=== PATIENT | male | born 1960 | race Caucasian/White ===

== ENCOUNTER 2023-01-06 07:23 | Inpatient (IN) | payer OTHER ==
[~2023-01-06] VITALS: Ht 180.3 cm; Wt 70.8 kg
--- NOTE | 2023-01-06 07:57 | NUR ---
IV ACCESS 20G RIGHT FOREARM. BLOOD DRAWN AND SENT TO LAB.
--- NOTE | 2023-01-06 07:59 | NUR ---
COVID SWAB COLLECTED AND SENT TO LAB
[2023-01-06] MEDS ORDERED: LORAZEPAM INJ 2 MG/ML VIAL IV ONE (08:00)
[2023-01-06] MEDS ORDERED: IV NS 0.9% 1,000 ML BAG IV ONE (08:00)
[2023-01-06] MEDS ORDERED: LORAZEPAM INJ 2 MG/ML VIAL ONE (08:04)
[2023-01-06 08:10] LABS: BASOPHILS % (AUTO) 0.1 % (0.0-2.0); HEMATOCRIT 44 % (39-51); HEMOGLOBIN 14.1 g/dL (13.5-17.5); LYMPHOCYTES # (AUTO) 0.3 K/uL (0.8-4.8); LYMPHOCYTES % (AUTO) 7.7 % (20.0-44.0); MEAN CORPUSCULAR HGB CONC 32 g/dl (31.0-36.0); MEAN CORPUSCULAR VOLUME 90 fL (80-96); MONOCYTES # (AUTO) 0.3 K/uL (0.1-1.30); MONOCYTES % (AUTO) 8.8 % (2.0-12.0); NEUTROPHILS % (AUTO) 83.4 % (43.0-81.0); PLATELET COUNT (AUTO) 60 K/uL (150-450); RED BLOOD CELL COUNT(AUTO) 4.87 MIL/uL (4.5-6.0); WHITE BLOOD COUNT (AUTO) 3.6 K/uL (4.3-11.0)
[2023-01-06 08:22] LABS: CARBON DIOXIDE 18 mmol/L (21-32); CHLORIDE 95 mmol/L (98-107); CREATININE 0.9 mg/dL (0.6-1.3); GLUCOSE 109 mg/dL (74-106); MAGNESIUM 1.6 mg/dL (1.8-2.4); POTASSIUM 3.9 mmol/L (3.5-5.1); SODIUM SERUM 140 mmol/L (136-145); UREA NITROGEN, BLOOD 17 mg/dL (7-18)
--- NOTE | 2023-01-06 08:27 | NUR ---
XRAY AT BEDSIDE FOR EVAL
[2023-01-06 08:29] LABS: ALANINE AMINOTRANSFERASE 173 U/L (12-78); ALBUMIN 4.1 g/dL (3.4-5.0); ALKALINE PHOSPHATASE 151 U/L (46-116); ASPARTATE AMINOTRANSFERASE 165 U/L (15-37); BILIRUBIN,DIRECT 0.9 mg/dL (0.0-0.2); BILIRUBIN,TOTAL 1.7 mg/dL (0.2-1.0); LIPASE 250 U/L (73-393); TOTAL PROTEIN, SERUM 8.1 g/dL (6.4-8.2)
--- NOTE | 2023-01-06 08:33 | NUR ---
MOVE SHEET SUBMITTED.
--- NOTE | 2023-01-06 09:28 | NUR ---
PANEL ON-CALL PAGED
[2023-01-06] MEDS ORDERED: Magnesium 1GM/D5W 100ML PREMIX PIGGYBACK IV ONE (09:30)
--- NOTE | 2023-01-06 10:41 | NUR ---
NS 1L IV ADMINISTERED AT 08, MAGNESIUM 1 G IV ADMINISTERED AT 09, BOTH FINISHED AT 1041
--- NOTE | 2023-01-06 11:00 | NUR ---
PACKAGING ASSOCIATE NOTE PATIENT WAS TRANSFERRED FROM THE ER , PATIENT IS ALERT ,ORIENTED TIMES 4 ,WAS ADMITTED WITH PRIMARY DIAGNOSIS OF ALCOHOL WITHDRAWAL, CURRENTLY ON IV HYDRATION N/S 100 ML/HR VIA IV ACCESS ON RIGHT WRIST 20 G . PATIENT IS VERY AGITATED , REQUEST PLACED TO THE DR CURTIS FOR ATIVAL IV .PATIENT CAN BE TRANSFERRED TO THE BED SIDE COMMODE WITH ASSISTANCE .CALL LIGHT WITHIN REACH .BED IS AT LOWEST POSITION , BED ALARM IS ON WILL CONTINUE TO MONITOR.
[2023-01-06] MEDS: IV NS 0.9% 1,000 ML IV PRN ×2 (11:45→21:51)
[2023-01-06] MEDS: LORAZEPAM INJ 2 MG/ML VIAL IV PRN ×3 (11:45→19:51)
[2023-01-06 12:00] VITALS: BP 135/85
[2023-01-06 12:51] LABS: BAND % (MANUAL) 4 % (0.0-5.0); NEUTROPHILS % (MANUAL) 80 (42-76)
[2023-01-06 12:52] LABS: BASOPHILS % (MANUAL) 0 % (0.0-2.0); EOSINOPHILS % (MANUAL) 0 % (0-4); LYMPHOCYTES % (MANUAL) 9 % (16-48); MONOCYTES % (MANUAL) 7 % (0-11.0)
[2023-01-06] MEDS: ONDANSETRON HCL/PF 4 MG/2 ML VIAL IV PRN ×2 (14:03→20:05)
[2023-01-06] MEDS ORDERED: ACETAMINOPHEN 325 MG TABLET PO PRN (15:30)
[2023-01-06] MEDS: THIAMINE HCL 100 MG TABLET PO SCH (15:39)
[2023-01-06] MEDS: PANTOPRAZOLE 40 MG VIAL IV SCH (15:39)
[2023-01-06] MEDS: FOLIC ACID 1 MG TABLET PO SCH (15:39)
[2023-01-06 16:00] VITALS: BP 131/86
[2023-01-06] MEDS: CHLORDIAZEPOXIDE HCL 25 MG CAPSULE PO SCH (16:27)
--- NOTE | 2023-01-06 18:52 | NUR ---
RN CLOSING NOTE PATIENT IS ALERT , ORIENTED TIMES 4 . IN BED ASKING FIR ATIVAN EVERY 4 HR NEEDED . IV ACSESS ON R WRIST 20 G , NS RUNNING AT 100ML/HR .ALL MEDICATIONS WERE ADMINISTERED ALL NEEDS WERE MET . BED IS AT LOWEST POSITION , CALL LIGHT WITHIN REACH ,WILL ENDORSE PRESCRIPTIONIST NURSE TO FALLOW POC .
--- NOTE | 2023-01-06 19:30 | NUR ---
SHEETMETAL PATTERNMAKER OPENING NOTES - RECEIVED PATIENT AWAKE. A/O X3, RESTLESS. BREATHING EVEN AND NON-LABORED ON ROOM AIR. C/O ANXIETY AND NAUSEA. ON TELE MONITOR READING SINUS TACHYCARDIA AT 110 BPM. HAS RIGHT FOREARM IV ACCESS #20G WITH NS RUNNING AT 100 ML/HR. NO S/S OF INFILTRATION NOTED. SAFETY PRECAUTIONS IN PLACE: BED LOCKED AND IN LOW POSITION, SIDE RAILS UP X2, CALL LIGHT WITHIN REACH. WILL CONTINUE PLAN OF CARE.
[2023-01-06 20:00] VITALS: BP 125/90
--- NOTE | 2023-01-06 20:09 | NUR ---
PRN ATIVAN 2MG GIVEN FOR ANXIETY AND ZOFRAN FOR NAUSEA. WILL CONTINUE TO MONITOR.
--- NOTE | 2023-01-06 22:30 | NUR ---
PATIENT REPORTED VISUAL HALLUCINATIONS. HE IS SEEING DIFFERENT CREATURES ON THE FLOOR AND IT WON'T MAKE HIM SLEEP. HE DENIES SI/HI. NOTIFIED HOSPITALIST MARIA R. NO NEW ORDERS GIVEN SINCE THIS IS R/T ALCOHOL DELIRIUM. WILL CONTINUE TO MONITOR AND GIVE ATIVAN 2MG Q4H PRN.
[2023-01-07] VITALS: BP 157/82
[2023-01-07] MEDS: LORAZEPAM INJ 2 MG/ML VIAL IV PRN ×5 (00:02→23:03)
--- NOTE | 2023-01-07 00:06 | NUR ---
PRN ATIVAN 2MG ADMINISTERED TO PATIENT. ADVISED TO INFORM ME ANY THOUGHTS OF HURTING HIMSELF OR OTHERS, VERBALIZED UNDERSTANDING.
[2023-01-07] MEDS: ONDANSETRON HCL/PF 4 MG/2 ML VIAL IV PRN (02:51)
[2023-01-07 04:00] VITALS: BP 145/93
--- NOTE | 2023-01-07 07:00 | NUR ---
PROJECT GEOPHYSICIST CLOSING NOTES - PATIENT RESTING IN BED, ABLE TO VERBALIZE NEEDS. BILATERAL HAND TREMORS AND AGITATION NOTED. SATURATING WELL ON ROOM AIR. AFEBRILE. TELE MONITOR SHOWS SINUS RHYTHM AT 99 BPM. RIGHT FOREARM IV ACCESS INTACT, PATENT AND FLUSHING. FREQUENT REORIENTATION NEEDED D/T PATIENT TRYING TO GET OUT OF BED. ALL DUE MEDS GIVEN AND NEEDS ATTENDED. WITHDRAWAL SYMPTOMS AND NAUSEA MANAGED PER MD ORDER. SAFETY MEASURES MAINTAINED. WILL ENDORSE TO AM NURSE FOR TERRI.
[2023-01-07 07:08] LABS: BASOPHILS % (AUTO) 0.2 % (0.0-2.0); EOSINOPHILS % (AUTO) 0.2 % (0.0-6.0); HEMATOCRIT 39 % (39-51); HEMOGLOBIN 12.7 g/dL (13.5-17.5); LYMPHOCYTES # (AUTO) 0.6 K/uL (0.8-4.8); LYMPHOCYTES % (AUTO) 12.5 % (20.0-44.0); MEAN CORPUSCULAR HGB CONC 33 g/dl (31.0-36.0); MEAN CORPUSCULAR VOLUME 90 fL (80-96); MONOCYTES # (AUTO) 0.9 K/uL (0.1-1.30); MONOCYTES % (AUTO) 19.5 % (2.0-12.0); NEUTROPHILS # (AUTO) 3.1 K/uL (1.8-8.9); NEUTROPHILS % (AUTO) 67.6 % (43.0-81.0); PLATELET COUNT (AUTO) 51 K/uL (150-450); RED BLOOD CELL COUNT(AUTO) 4.29 MIL/uL (4.5-6.0); WHITE BLOOD COUNT (AUTO) 4.6 K/uL (4.3-11.0)
[2023-01-07 07:27] LABS: ALBUMIN 3.4 g/dL (3.4-5.0); BILIRUBIN,DIRECT 0.9 mg/dL (0.0-0.2); BILIRUBIN,TOTAL 2.7 mg/dL (0.2-1.0); CALCIUM, SERUM 8.8 mg/dL (8.5-10.1); CREATININE 0.7 mg/dL (0.6-1.3); MAGNESIUM 1.6 mg/dL (1.8-2.4); PHOSPHORUS 1.4 mg/dL (2.5-4.9); POTASSIUM 3.4 mmol/L (3.5-5.1); TOTAL PROTEIN, SERUM 6.9 g/dL (6.4-8.2)
--- NOTE | 2023-01-07 07:38 | NUR ---
TELEPHONE SURVEYOR OPENING NOTE Patient in bed, awake A/O x 2. On room air, no SOB or s/s of distress noted. No IV access at this time, pulled out. On external monitoring showing controlled SR. Safety precautions in place: bed in low, locked position; siderails up x 2; call light within reach. Will continue to monitor.
[2023-01-07 08:00] VITALS: BP 139/96
[2023-01-07] MEDS: IV NS 0.9% 1,000 ML IV PRN ×2 (08:07→18:41)
--- NOTE | 2023-01-07 08:07 | NUR ---
RN NOTE IV re-inserted on Right forearm #22, flushes well.
[2023-01-07] MEDS: FOLIC ACID 1 MG TABLET PO SCH (08:50)
[2023-01-07] MEDS: PANTOPRAZOLE 40 MG VIAL IV SCH (08:50)
[2023-01-07] MEDS: CHLORDIAZEPOXIDE HCL 25 MG CAPSULE PO SCH ×3 (08:50→16:41)
[2023-01-07] MEDS: THIAMINE HCL 100 MG TABLET PO SCH (08:50)
[2023-01-07] MEDS: ENSURE ENLIVE 237 ML LIQUID (VANILLA) PO SCH ×2 (08:51→16:41)
--- NOTE | 2023-01-07 10:06 | NUR ---
RN NOTE Patient is agitated and tremors noted on both hands. Patient keeps trying to get out of bed, not stable on his feet. PRN Ativan 2 mg IV given. Will continue to monitor.
[2023-01-07] MEDS ORDERED: POTASSIUM CHLORIDE 20 MEQ TAB.PRT.SR PO SCH (10:30)
[2023-01-07] MEDS ORDERED: K PHOS NEUTRAL 250 MG TABLET PO ONE (11:00)
[2023-01-07] MEDS ORDERED: MAGNESIUM OXIDE 400 MG TABLET PO ONE (11:00)
[2023-01-07 12:00] VITALS: BP 155/103
--- NOTE | 2023-01-07 14:33 | NUR ---
RN NOTE Patient still very agitated and keeps trying to get out of bed, not stable on his feet. Already on restraints per MD order. PRN Ativan 2 mg IV given. Will continue to monitor.
[2023-01-07] MEDS ORDERED: LORAZEPAM INJ 2 MG/ML VIAL IV ONE (15:00)
--- NOTE | 2023-01-07 15:14 | NUR ---
RN NOTE Patient still very agitated and now combative, still keeps trying to get out of bed, Dr. Pratt ordered one time Ativan 2 mg IV, medication given. Will continue to monitor.
[2023-01-07 16:00] VITALS: BP 120/86
[2023-01-07] MEDS ORDERED: QUETIAPINE FUMARATE 25 MG TABLET PO ONE (16:00)
[2023-01-07] MEDS ORDERED: QUETIAPINE FUMARATE 25 MG TABLET PO SCH (16:00)
--- NOTE | 2023-01-07 16:04 | NUR ---
RN NOTE Patient still very agitated and still combative, still keeps trying to get out of bed, Dr. Pratt ordered one time Seroquel 50 mg PO, medication given. Will continue to monitor.
[2023-01-07 17:30] LABS: BAND % (MANUAL) 1 % (0.0-5.0); LYMPHOCYTES % (MANUAL) 19 % (16-48); MONOCYTES % (MANUAL) 7 % (0-11.0); NEUTROPHILS % (MANUAL) 73 (42-76)
--- NOTE | 2023-01-07 18:56 | NUR ---
ASSOCIATE MUSIC PROFESSOR CLOSING NOTE Patient in bed, resting. A/O x 2, confused. Stable on room air, no SOB or s/s of distress noted. IV access on LFA #22 infusing NS at 100 ml/hr. On external monitoring showing controlled Sinus tachycardia, HR 114. All needs attended to. Due meds given. Bilateral soft wrist restraints in place. Safety precautions in place: bed in low, locked position; siderails up x 2; call light within reach. Will endorse to warehouse worker 2nd shift nurse for TERRI.
--- NOTE | 2023-01-07 19:31 | NUR ---
RN OPENING NOTES: RECEIVED PT IN BED, AWAKE, ALERT/ORIENTED X 1-2 WITH CONFUSION AND VERBALLY RESPONSIVE. ON ROOM AIR AND PT TOLERATED WELL. IV ACCESS ON RFA#22G INTACT AND PATENT. RUNNING NS AT 100CC/HR. NO C/O PAIN OR DISCOMFORT. NO ACUTE DISTRESS. BILATERAL SOFT RESTRAINTS ON. ALL SAFETY MEASURES IN PLACE. BED IN LOWEST POSITION AND LOCKED. BED ALARM ON. SIDE RAILS UP X3, PLACE CALL LIGHT WITHIN REACH. WILL CONTINUE TO MONITOR.
[2023-01-07 20:00] VITALS: BP 96/78
--- NOTE | 2023-01-07 23:07 | NUR ---
RN NOTES: NOTED PT WITH SEVERE AGITATION. KEPT TRYING TO REMOVE THE RESTRAINTS. ATIVAN GIVEN PER PRN ORDERED. WILL CONTINUE TO MONITOR
[2023-01-08] VITALS: BP 120/75
[2023-01-08 04:00] VITALS: BP 118/78
[2023-01-08] MEDS: IV NS 0.9% 1,000 ML IV PRN ×2 (04:29→14:49)
--- NOTE | 2023-01-08 06:29 | NUR ---
RN CLOSING NOTES: PT IN BED, AWAKE, ALERT/ORIENTED X 1-2 WITH VERY CONFUSION AND VERBALLY RESPONSIVE. ON ROOM AIR AND PT TOLERATED WELL. O2 SAT 99%. IV ACCESS ON RFA#22G INTACT AND PATENT. RUNNING NS AT 100CC/HR. NO C/O PAIN OR DISCOMFORT. NO ACUTE DISTRESS. BILATERAL SOFT RESTRAINTS ON.RELEASED Q 2 HOURS TO CHECK CIRCULATION. STILL MONITORING FOR ALCOHOL WITHDRAWAL. NO SIGNIFICANT CHANGES DURING PREVIOUS SHIFT. ALL SAFETY MEASURES IN PLACE. BED IN LOWEST POSITION AND LOCKED. BED ALARM ON. SIDE RAILS UP X3, PLACE CALL LIGHT WITHIN REACH. WILL ENDORSE TO MORNING SHIFT NURSE.
[2023-01-08 06:43] LABS: CALCIUM, SERUM 8.8 mg/dL (8.5-10.1); CREATININE 0.6 mg/dL (0.6-1.3); MAGNESIUM 1.5 mg/dL (1.8-2.4); PHOSPHORUS 1.6 mg/dL (2.5-4.9); POTASSIUM 3.1 mmol/L (3.5-5.1)
--- NOTE | 2023-01-08 07:30 | NUR ---
PIE BOTTOMER AM NOTES: RECEIVED PT IN BED, AWAKE, ALERT/ORIENTED X 1-2, VERY CONFUSED, INCOMPREHENSIBLE WORDS, TALKING TO SELF, ON ROOM AIR, O2 SAT AT 97%, NO SOB, RESPIRATION UNLABORED. ST HR 118, DENIES PAIN/ DISCOMFORT, FRA 22G IV ACCESS WITH NS AT 100 ML/HR INFUSING WELL, SITE CLEAR. BILATERAL SOFT RESTRAINTS IN PLACE, RELEASED AND CHECKED FOR CIRCULATION THEN Q 2 HOURS. PATIENT TRIES TO GET OUT OF BED. ALL SAFETY MEASURES IN PLACE. BED IN LOWEST POSITION AND LOCKED. BED ALARM ON. SIDE RAILS UP X3, PLACE CALL LIGHT WITHIN REACH. WILL CONTINUE TO MONITOR.
[2023-01-08 08:00] VITALS: BP 111/85
[2023-01-08] MEDS: ENSURE ENLIVE 237 ML LIQUID (VANILLA) PO SCH ×2 (08:13→16:41)
[2023-01-08] MEDS: CHLORDIAZEPOXIDE HCL 25 MG CAPSULE PO SCH ×3 (08:48→16:40)
[2023-01-08] MEDS: PANTOPRAZOLE 40 MG TABLET.DR PO SCH (08:48)
[2023-01-08] MEDS: THIAMINE HCL 100 MG TABLET PO SCH (08:48)
[2023-01-08] MEDS: FOLIC ACID 1 MG TABLET PO SCH (08:48)
--- NOTE | 2023-01-08 09:30 | NUR ---
RN NOTES DUE MEDS GIVEN
[2023-01-08] MEDS: LORAZEPAM INJ 2 MG/ML VIAL IV PRN (09:59)
[2023-01-08] MEDS ORDERED: MAGNESIUM OXIDE 400 MG TABLET PO ONE (10:30)
[2023-01-08] MEDS: POTASSIUM CHLORIDE 20 MEQ TAB.PRT.SR PO SCH ×2 (11:17→12:41)
[2023-01-08 12:00] VITALS: BP 121/82
[2023-01-08 16:00] VITALS: BP 132/82
[2023-01-08] MEDS ORDERED: K PHOS NEUTRAL 250 MG TABLET PO ONE (16:30)
--- NOTE | 2023-01-08 18:47 | NUR ---
CHRONIC SPECIALIST CLOSING NOTES: PT IN BED, AWAKE, ALERT/ORIENTED X 1-2, VERY CONFUSED, INCOMPREHENSIBLE WORDS, TALKING TO SELF, ON ROOM AIR, O2 SAT AT >94%, NO SOB, RESPIRATION UNLABORED. ST HR 106, DENIES PAIN/ DISCOMFORT, RFA 22G IV ACCESS WITH NS AT 100 ML/HR INFUSING WELL, SITE CLEAR. BILATERAL SOFT RESTRAINTS IN PLACE, RELEASED AND CHECKED FOR CIRCULATION THEN Q 2 HOURS. PATIENT TRIES TO GET OUT OF BED. ALL SAFETY MEASURES IN PLACE. BED IN LOWEST POSITION AND LOCKED. BED ALARM ON. SIDE RAILS UP X3, PLACE CALL LIGHT WITHIN REACH. ALL NEEDS MET AT THIS TIME. WILL ENDORSE TO NEXT SHIFT FOR TERRI.
--- NOTE | 2023-01-08 19:10 | NUR ---
RN OPENING NOTES: RECEIVED PT IN BED, AWAKE, ALERT/ORIENTED X 1-2 WITH CONFUSION AND VERBALLY RESPONSIVE. ON ROOM AIR AND PT TOLERATED WELL. NSR ON THE MONITOR. IV ACCESS ON RFA#22G INTACT AND PATENT. RUNNING NS AT 100CC/HR. NO C/O PAIN OR DISCOMFORT. NO ACUTE DISTRESS. BILATERAL SOFT RESTRAINTS ON. ALL SAFETY MEASURES IN PLACE. BED IN LOWEST POSITION AND LOCKED. BED ALARM ON. SIDE RAILS UP X3, PLACE CALL LIGHT WITHIN REACH. WILL CONTINUE TO MONITOR.
[2023-01-08 20:00] VITALS: BP 92/62
[2023-01-09] VITALS: BP 144/96
[2023-01-09] MEDS: IV NS 0.9% 1,000 ML IV PRN ×2 (00:49→10:48)
[2023-01-09 04:00] VITALS: BP 138/87
--- NOTE | 2023-01-09 06:38 | NUR ---
RN CLOSING NOTES: PT IN BED, AWAKE, ALERT/ORIENTED X 1-2 WITH CONFUSION AND VERBALLY RESPONSIVE. ON ROOM AIR, NO S/S OF RESPIRATORY DISTRESS, O2 SATURATION 95%. NSR ON THE MONITOR. IV ACCESS ON RFA#22G INTACT AND PATENT. RUNNING NS AT 100 ML/HR. NO C/O PAIN OR DISCOMFORT. NO ACUTE DISTRESS. BILATERAL SOFT RESTRAINTS ON. ALL SAFETY MEASURES IN PLACE. BED IN LOWEST POSITION AND LOCKED. BED ALARM ON. SIDE RAILS UP X3, PLACE CALL LIGHT WITHIN REACH. WILL BE ENDORSED TO THE NEXT SHIFT FOR TERRI.
--- NOTE | 2023-01-09 07:30 | NUR ---
COOK COLD MEAT OPENING NOTES: RECEIVED PT IN BED, AWAKE, ALERT/ORIENTED X 1-2 WITH CONFUSION AND VERBALLY RESPONSIVE. ON ROOM AIR AND PT TOLERATED WELL. ST HR 105 ON TELE MONITOR. IV ACCESS ON RFA#22G INTACT AND PATENT, RUNNING NS AT 100CC/HR. NO C/O PAIN OR DISCOMFORT AT THIS TIME/ NO ACUTE DISTRESS. BILATERAL SOFT RESTRAINTS ON, CHECK FOR SKIN AND CIRCULATION. ALL SAFETY MEASURES IN PLACE. BED IN LOWEST POSITION AND LOCKED. BED ALARM ON. SIDE RAILS UP X3, PLACE CALL LIGHT WITHIN REACH. PLAN OF CARE CONTINUE.
[2023-01-09 08:00] VITALS: BP 145/86
[2023-01-09] MEDS: THIAMINE HCL 100 MG TABLET PO SCH (08:10)
[2023-01-09] MEDS: PANTOPRAZOLE 40 MG TABLET.DR PO SCH (08:10)
[2023-01-09] MEDS: CHLORDIAZEPOXIDE HCL 25 MG CAPSULE PO SCH ×3 (08:10→16:35)
[2023-01-09] MEDS: FOLIC ACID 1 MG TABLET PO SCH (08:10)
[2023-01-09] MEDS: ENSURE ENLIVE 237 ML LIQUID (VANILLA) PO SCH ×2 (08:12→16:25)
[2023-01-09 09:19] LABS: CALCIUM, SERUM 8.8 mg/dL (8.5-10.1); CREATININE 0.6 mg/dL (0.6-1.3); POTASSIUM 3.2 mmol/L (3.5-5.1)
[2023-01-09 09:25] LABS: BILIRUBIN,TOTAL 1.5 mg/dL (0.2-1.0); TOTAL PROTEIN, SERUM 6.3 g/dL (6.4-8.2)
[2023-01-09] MEDS ORDERED: MAGNESIUM OXIDE 400 MG TABLET PO ONE (11:30)
[2023-01-09] MEDS ORDERED: POTASSIUM CHLORIDE 20 MEQ TAB.PRT.SR PO ONE (11:30)
[2023-01-09 12:00] VITALS: BP 131/89
[2023-01-09] MEDS: LEVOFLOXACIN 750 MG /D5W 150ML 750 MG in PREMIX 1 EA IV SCH (13:17)
--- NOTE | 2023-01-09 13:33 | NUR ---
SW Consult: SW consult requested for ETOH abuse. Patient brought to the hospital due to alcohol withdrawal. Patient appeared to be alert and oriented x3 (self,place,situation). Patient was cooperative with this commercial underwriter while conducting the assessment. Patient appeared to present with a flat affect. Patient appeared to be somewhat confused. He did require constant re-direct when assessing the patient. He did stated that he was brought to the hospital due to drinking heavily. He stated that he used to drink beer but changed it to whiskey. He did not tell this commercial underwriter the amount of alcohol he consumes. He did report that he had lost his and began to drink more. Patient reported he has not received any treatment for his addiction. Patient stated that he prefers to continue to drink beer. Patient stated that he does not have any support at this time. He did stated that he lives at home alone located at [address] [place] [address]; ([phone]). SW assessed for suicidal or homicidal ideation and pt denied. Pt denied visual/auditory hallucinations. Bedside nurse stated that pt needs assistance with his ADLs. SW will make an APS report for wellness check at home. DC PLAN: Pt would want to return back home located at [address] [place] [address]; ([phone]) or will recommend SNF. Addendum: 01/09/23 at 1345 by KEVIN KELSEY Substance Abuse resources provided included: [facility] Substance Abuse Self-Helpline ([facility]) ; [facility] [address] [facility] [place]. [place] [id number] ; [facility] [address] [facility] [address] ; [facility] [address] [facility] [place] [address] ; [facility] [address] [facility] [phone] ; [facility] [place] [address] [facility] [id number] ; [facility] [address] [facility] [phone] ; [facility] Substance Abuse Helpline(S[facility] ; [facility] ; [facility] [place]; [facility] [place]; [facility] [place]; [facility] [place]; [facility] [place]; [facility] [place]; [facility] [place]; [facility] [place]; Alcoholics Anonymous -[facility]; [facility] ; Marijuana Anonymous [facility]; Narcotics Anonymous www.na.org;
[2023-01-09] MEDS: LORAZEPAM INJ 2 MG/ML VIAL IV PRN (13:46)
--- NOTE | 2023-01-09 14:30 | NUR ---
SEEN BY NELY GENERAL DENTIST, WITH ORDER FOR PSYCH CONSULT AND ZYPREXA 5MG BID, NOTED AND CARRIED OUT. FAXED FACE SHEET TO [employer], POURED WALL FOREMAN MD IS DR. SCHUSTER
--- NOTE | 2023-01-09 14:59 | NUR ---
APS: KEVIN filed for APS report through [facility] intake # [id number] for wellness check at home.
[2023-01-09 16:00] VITALS: BP 124/89
[2023-01-09] MEDS: OLANZAPINE 5 MG TABLET PO SCH (16:35)
--- NOTE | 2023-01-09 18:32 | NUR ---
BOAT RENTAL CLERK CLOSING NOTES: PT IN BED, AWAKE, ALERT/ORIENTED X 1-2 WITH CONFUSION AND VERBALLY RESPONSIVE. ON ROOM AIR AND PT TOLERATED WELL. ST HR 105 ON TELE MONITOR. IV ACCESS ON LFA#22G INTACT AND PATENT, RUNNING NS AT 100CC/HR. NO C/O PAIN OR DISCOMFORT AT THIS TIME/ NO ACUTE DISTRESS. BILATERAL SOFT RESTRAINTS ON, CHECK FOR SKIN AND CIRCULATION. ALL SAFETY MEASURES IN PLACE. BED IN LOWEST POSITION AND LOCKED. BED ALARM ON. SIDE RAILS UP X3, PLACE CALL LIGHT WITHIN REACH. WILL ENDORSE TO NIGHT NURSE FOR TERRI. .
--- NOTE | 2023-01-09 19:46 | NUR ---
RN OPENING NOTES: PT RECEIVED IN BED, AWAKE, ALERT/ORIENTED X 1-2 WITH CONFUSION AND VERBALLY RESPONSIVE. ON ROOM AIR, NO S/S OF RESPIRATORY DISTRESS. NSR ON THE MONITOR. IV ACCESS ON LFA#22G INTACT AND PATENT. RUNNING NS AT 100 ML/HR. NO C/O PAIN OR DISCOMFORT. NO ACUTE DISTRESS. BILATERAL SOFT RESTRAINTS ON. ALL SAFETY MEASURES IN PLACE. BED IN LOWEST POSITION AND LOCKED. BED ALARM ON. SIDE RAILS UP X3, PLACE CALL LIGHT WITHIN REACH. WILL CONTINUE TO MONITOR.
[2023-01-09 20:00] VITALS: BP 113/84
[2023-01-10] VITALS: BP 132/93
[2023-01-10] MEDS: IV NS 0.9% 1,000 ML IV PRN ×3 (00:46→23:35)
[2023-01-10 04:00] VITALS: BP 147/89
--- NOTE | 2023-01-10 06:45 | NUR ---
RN CLOSING NOTES: PT IN BED, AWAKE, ALERT/ORIENTED X 1-2 WITH CONFUSION AND VERBALLY RESPONSIVE. ON ROOM AIR, NO S/S OF RESPIRATORY DISTRESS. NSR ON THE MONITOR. IV ACCESS ON LFA#22G INTACT AND PATENT. RUNNING NS AT 100 ML/HR. NO C/O PAIN OR DISCOMFORT. NO ACUTE DISTRESS. BILATERAL SOFT RESTRAINTS ON. RELEASED EVERY 2 HOURS TO ASSESS THE CIRCULATION. ALL SAFETY MEASURES IN PLACE. BED IN LOWEST POSITION AND LOCKED. BED ALARM ON. SIDE RAILS UP X3, PLACE CALL LIGHT WITHIN REACH. WILL ENDORSE TO THE NEXT SHIFT.
--- NOTE | 2023-01-10 07:28 | NUR ---
MANAGER FIELD INVESTIGATIONS OPENING NOTES: RECEIVED PT IN BED, AWAKE, ALERT/ORIENTED X 1-2 WITH CONFUSION AND VERBALLY RESPONSIVE. ON ROOM AIR AND PT TOLERATED WELL. ST HR 102. ON TELE MONITOR. IV ACCESS ON LFA#22G INTACT AND PATENT, RUNNING NS AT 100CC/HR. NO C/O PAIN OR DISCOMFORT AT THIS TIME/ NO ACUTE DISTRESS. BILATERAL SOFT RESTRAINTS ON, CHECK FOR SKIN AND CIRCULATION. ALL SAFETY MEASURES IN PLACE. BED IN LOWEST POSITION AND LOCKED. BED ALARM ON. SIDE RAILS UP X3, PLACE CALL LIGHT WITHIN REACH. PLAN OF CARE CONTINUE.
[2023-01-10 08:00] VITALS: BP 145/83
[2023-01-10] MEDS: ENSURE ENLIVE 237 ML LIQUID (VANILLA) PO SCH ×2 (08:00→16:16)
[2023-01-10] MEDS: PANTOPRAZOLE 40 MG TABLET.DR PO SCH (08:05)
[2023-01-10] MEDS: CHLORDIAZEPOXIDE HCL 25 MG CAPSULE PO SCH ×3 (08:05→16:20)
[2023-01-10] MEDS: OLANZAPINE 5 MG TABLET PO SCH ×2 (08:05→16:20)
[2023-01-10] MEDS: FOLIC ACID 1 MG TABLET PO SCH (08:05)
[2023-01-10] MEDS: THIAMINE HCL 100 MG TABLET PO SCH (08:05)
[2023-01-10 08:06] LABS: BASOPHILS % (AUTO) 0.1 % (0.0-2.0); EOSINOPHILS % (AUTO) 1.3 % (0.0-6.0); HEMATOCRIT 44 % (39-51); HEMOGLOBIN 14.1 g/dL (13.5-17.5); LYMPHOCYTES # (AUTO) 0.4 K/uL (0.8-4.8); LYMPHOCYTES % (AUTO) 10.1 % (20.0-44.0); MEAN CORPUSCULAR HGB CONC 32 g/dl (31.0-36.0); MEAN CORPUSCULAR VOLUME 92 fL (80-96); MONOCYTES # (AUTO) 0.8 K/uL (0.1-1.30); MONOCYTES % (AUTO) 18.6 % (2.0-12.0); NEUTROPHILS # (AUTO) 2.9 K/uL (1.8-8.9); NEUTROPHILS % (AUTO) 69.9 % (43.0-81.0); PLATELET COUNT (AUTO) 91 K/uL (150-450); RED BLOOD CELL COUNT(AUTO) 4.82 MIL/uL (4.5-6.0); WHITE BLOOD COUNT (AUTO) 4.2 K/uL (4.3-11.0)
[2023-01-10 08:50] LABS: CALCIUM, SERUM 9.1 mg/dL (8.5-10.1); CREATININE 0.6 mg/dL (0.6-1.3); POTASSIUM 3.7 mmol/L (3.5-5.1)
[2023-01-10 09:11] LABS: MAGNESIUM 1.5 mg/dL (1.8-2.4); PHOSPHORUS 2.7 mg/dL (2.5-4.9)
--- NOTE | 2023-01-10 09:14 | NUR ---
PATIENT WALK WITH PT ABLE TO AMBULATE WITH MINIMAL ASSIST TO THE NURSES STATION.
[2023-01-10] MEDS: LEVOFLOXACIN 750 MG /D5W 150ML 750 MG in PREMIX 1 EA IV SCH (10:30)
[2023-01-10 11:07] LABS: THYROID STIMULATING HORMONE 0.975 uIU/mL (0.358-3.74)
[2023-01-10] MEDS: LORAZEPAM INJ 2 MG/ML VIAL IV PRN ×2 (11:11→18:09)
--- NOTE | 2023-01-10 11:55 | NUR ---
PATIENT IS OUT FOR CT
[2023-01-10 12:00] VITALS: BP 153/89
--- NOTE | 2023-01-10 12:10 | NUR ---
PATIENT IS BACK FROM CT
[2023-01-10] MEDS ORDERED: Magnesium 1GM/D5W 100ML PREMIX 100 ML IV SCH (14:00)
[2023-01-10] MEDS ORDERED: Magnesium 1GM/D5W 100ML PREMIX PIGGYBACK IV ONE (14:00)
[2023-01-10 16:00] VITALS: BP 136/89
[2023-01-10 18:17] LABS: BAND % (MANUAL) 1 % (0.0-5.0); EOSINOPHILS % (MANUAL) 1 % (0-4); LYMPHOCYTES % (MANUAL) 21 % (16-48); MONOCYTES % (MANUAL) 8 % (0-11.0); NEUTROPHILS % (MANUAL) 69 (42-76)
[2023-01-10 20:00] VITALS: BP 136/89
[2023-01-11] VITALS: BP 145/81
[2023-01-11 05:22] VITALS: BP 143/84
--- NOTE | 2023-01-11 06:33 | NUR ---
RN NOTES: PT IN BED, AWAKE, ALERT/ORIENTED X 1-2 WITH CONFUSION AND VERBALLY RESPONSIVE. ON ROOM AIR, NO S/S OF RESPIRATORY DISTRESS. IV ACCESS ON LFA#22G INTACT AND PATENT. RUNNING NS AT 100 ML/HR. NO C/O PAIN OR DISCOMFORT. NO ACUTE DISTRESS. BILATERAL SOFT RESTRAINTS ON. RELEASED EVERY 2 HOURS TO ASSESS THE CIRCULATION. ALL SAFETY MEASURES IN PLACE. BED IN LOWEST POSITION AND LOCKED. BED ALARM ON. SIDE RAILS UP X3, PLACE CALL LIGHT WITHIN REACH. WILL ENDORSE TO THE NEXT SHIFT.
[2023-01-11 07:06] LABS: BASOPHILS % (AUTO) 0.1 % (0.0-2.0); EOSINOPHILS % (AUTO) 1.2 % (0.0-6.0); HEMATOCRIT 42 % (39-51); HEMOGLOBIN 13.4 g/dL (13.5-17.5); LYMPHOCYTES # (AUTO) 0.6 K/uL (0.8-4.8); MEAN CORPUSCULAR HGB CONC 32 g/dl (31.0-36.0); MEAN CORPUSCULAR VOLUME 93 fL (80-96); MONOCYTES # (AUTO) 1.1 K/uL (0.1-1.30); MONOCYTES % (AUTO) 30.8 % (2.0-12.0); NEUTROPHILS % (AUTO) 52.9 % (43.0-81.0); PLATELET COUNT (AUTO) 111 K/uL (150-450); RED BLOOD CELL COUNT(AUTO) 4.53 MIL/uL (4.5-6.0); WHITE BLOOD COUNT (AUTO) 3.7 K/uL (4.3-11.0)
--- NOTE | 2023-01-11 07:25 | NUR ---
RN OPENING NOTE RECEIVED PATIENT IN BED, AWAKE, A/O X2, VERBALLY RESPONSIVE, WITH CONFUSION. REALITY ORIENTATION PROVIDED. ON ROOM AIR, NO SOB NOTED, BREATHING EVEN AND UNLABORED. DENIES ANY PAIN AT THIS TIME. BILATERAL SOFT WRIST RESTRAINTS IN PLACE. FOR SAFETY. NOTED WITH IV ACCESS ON LEFT FOREARM #22G, INTACT AND PATENT WITH NS @ 10ML/HR INFUSING WELL. SAFETY MEASURE IN PLACE. BED IN LOW AND LOCKED POSITION, BED ALARM ON, SIDE RAILS UP X3, CALL LIGHT PLACED WITHIN EASY REACH. WILL CONTINUE TO MONITOR PATIENT.
[2023-01-11 07:30] LABS: CREATININE 0.7 mg/dL (0.6-1.3); MAGNESIUM 1.7 mg/dL (1.8-2.4); PHOSPHORUS 3.1 mg/dL (2.5-4.9)
[2023-01-11 08:00] VITALS: BP 123/99
[2023-01-11 08:07] LABS: ALBUMIN 3.1 g/dL (3.4-5.0); TOTAL PROTEIN, SERUM 6.9 g/dL (6.4-8.2)
[2023-01-11] MEDS: ENSURE ENLIVE 237 ML LIQUID (VANILLA) PO SCH ×2 (08:25→17:16)
[2023-01-11] MEDS: THIAMINE HCL 100 MG TABLET PO SCH (08:25)
[2023-01-11] MEDS: PANTOPRAZOLE 40 MG TABLET.DR PO SCH (08:25)
[2023-01-11] MEDS: FOLIC ACID 1 MG TABLET PO SCH (08:25)
[2023-01-11] MEDS: OLANZAPINE 5 MG TABLET PO SCH (08:25)
[2023-01-11] MEDS: CHLORDIAZEPOXIDE HCL 25 MG CAPSULE PO SCH ×3 (08:25→16:24)
--- NOTE | 2023-01-11 08:40 | NUR ---
RN NOTE SEEN AND EXAMINED BY NELY COON NP, WITH ORDERS RECEIVED, CARRIED OUT.
[2023-01-11] MEDS: LEVOFLOXACIN (250MG) 250 MG TABLET PO SCH (09:02)
[2023-01-11] MEDS ORDERED: MAGNESIUM OXIDE 400 MG TABLET PO ONE (10:30)
[2023-01-11 12:00] VITALS: BP 159/92
[2023-01-11] MEDS: HALOPERIDOL 5 MG TABLET PO SCH ×2 (12:23→16:25)
[2023-01-11 14:22] LABS: EOSINOPHILS % (MANUAL) 1 % (0-4); LYMPHOCYTES % (MANUAL) 18 % (16-48); MONOCYTES % (MANUAL) 25 % (0-11.0); NEUTROPHILS % (MANUAL) 56 (42-76)
[2023-01-11 16:00] VITALS: BP 137/90
--- NOTE | 2023-01-11 18:45 | NUR ---
RN CLOSING NOTE PATIENT IN BED, AWAKE, A/O X2, VERBALLY RESPONSIVE, WITH CONFUSION. REALITY ORIENTATION PROVIDED. STABLE ON ROOM AIR, NO SOB NOTED, BREATHING EVEN AND UNLABORED. DENIED ANY PAIN. WITH IV ACCESS ON LEFT FOREARM #22G, INTACT AND PATENT, SALINE LOCKED. CONTINUE ON CARDIAC MONITORING SHOWING SR/ST, HR @90-101. ALL DUE MEDS GIVEN, TOLERATED WELL. SAFETY MEASURE MAINTAINED. BED IN LOW AND LOCKED POSITION, BED ALARM ON, SIDE RAILS UP X3, CALL LIGHT PLACED WITHIN EASY REACH. WILL ENDORSE TO NEXT SHIFT FOR CONTINUITY OF CARE.
[2023-01-11 20:00] VITALS: BP 143/88
[2023-01-11] MEDS: LORAZEPAM INJ 2 MG/ML VIAL IV PRN (21:48)
[2023-01-12] VITALS: BP 127/87
--- NOTE | 2023-01-12 01:00 | NUR ---
RN NOTES PATIENT IS CONFUSED TRYING TO GET OUT OF BED. FREQUENT VISUAL MONITORING RENDERED.
[2023-01-12 04:00] VITALS: BP 120/89
[2023-01-12] MEDS: IV NS 0.9% 1,000 ML IV PRN (05:49)
--- NOTE | 2023-01-12 06:17 | NUR ---
RN NOTES: PT IN BED, AWAKE, ALERT/ORIENTED X 1-2 WITH CONFUSION AND VERBALLY RESPONSIVE. ON ROOM AIR, NO S/S OF RESPIRATORY DISTRESS. IV ACCESS ON LFA#22G INTACT AND PATENT. RUNNING NS AT 100 ML/HR. NO C/O PAIN OR DISCOMFORT. NO ACUTE DISTRESS. PATIENT IS CONFUSED ALL NIGHT TRYING TO GET OUT OF BED. ALL SAFETY MEASURES IN PLACE. BED IN LOWEST POSITION AND LOCKED. BED ALARM ON. SIDE RAILS UP X3, PLACE CALL LIGHT WITHIN REACH. WILL ENDORSE TO THE NEXT SHIFT.
[2023-01-12 08:00] VITALS: BP 117/81
[2023-01-12] MEDS: ENSURE ENLIVE 237 ML LIQUID (VANILLA) PO SCH ×2 (08:09→17:10)
[2023-01-12] MEDS: LEVOFLOXACIN (250MG) 250 MG TABLET PO SCH (08:13)
[2023-01-12] MEDS: CHLORDIAZEPOXIDE HCL 25 MG CAPSULE PO SCH ×3 (08:13→17:10)
[2023-01-12] MEDS: THIAMINE HCL 100 MG TABLET PO SCH (08:14)
[2023-01-12] MEDS: FOLIC ACID 1 MG TABLET PO SCH (08:14)
[2023-01-12] MEDS: HALOPERIDOL 5 MG TABLET PO SCH ×3 (08:14→17:10)
[2023-01-12] MEDS: PANTOPRAZOLE 40 MG TABLET.DR PO SCH (08:16)
[2023-01-12] MEDS: LORAZEPAM INJ 2 MG/ML VIAL IV PRN ×2 (11:29→17:37)
[2023-01-12 12:00] VITALS: BP 125/81
[2023-01-12 16:00] VITALS: BP 137/80
--- NOTE | 2023-01-12 18:45 | NUR ---
RN CLOSING NOTE PATIENT IN BED, AWAKE, A/O X2, VERBALLY RESPONSIVE, WITH CONFUSION. REALITY ORIENTATION PROVIDED. STABLE ON ROOM AIR, NO SOB NOTED, BREATHING EVEN AND UNLABORED. DENIED ANY PAIN. WITH IV ACCESS ON LEFT FOREARM #22G, INTACT AND PATENT, SALINE LOCKED. CONTINUE ON CARDIAC MONITORING SHOWING SR/ST, HR @90-106. ALL DUE MEDS GIVEN, TOLERATED WELL. SAFETY MEASURE MAINTAINED. BED IN LOW AND LOCKED POSITION, BED ALARM ON, SIDE RAILS UP X3, CALL LIGHT PLACED WITHIN EASY REACH. WILL ENDORSE TO NEXT SHIFT FOR CONTINUITY OF CARE.
--- NOTE | 2023-01-12 19:30 | NUR ---
RN NOTES: PT RECEIVED IN BED, AWAKE, ALERT/ORIENTED X 1-2 WITH CONFUSION AND VERBALLY RESPONSIVE. ON ROOM AIR, NO S/S OF RESPIRATORY DISTRESS. NSR ON THE MONITOR. IV ACCESS ON RFA#22G INTACT AND PATENT. RUNNING NS AT 100 ML/HR. NO C/O PAIN OR DISCOMFORT. NO ACUTE DISTRESS. BILATERAL SOFT RESTRAINTS ON. ALL SAFETY MEASURES IN PLACE. BED IN LOWEST POSITION AND LOCKED. BED ALARM ON. SIDE RAILS UP X3, PLACE CALL LIGHT WITHIN REACH. WILL CONTINUE TO MONITOR.
[2023-01-12 20:00] VITALS: BP 143/97
[2023-01-13] VITALS: BP 108/68
[2023-01-13 04:00] VITALS: BP 124/68
--- NOTE | 2023-01-13 07:10 | NUR ---
RN OPENING NOTE PT IN BED, AWAKE, ALERT/ORIENTED X 1-2 WITH CONFUSION AND VERBALLY RESPONSIVE. ON ROOM AIR, NO S/S OF RESPIRATORY DISTRESS. NSR ON THE MONITOR. IV ACCESS ON LFA#22G INTACT AND PATENT. RUNNING NS AT 100 ML/HR. NO C/O PAIN OR DISCOMFORT. NO ACUTE DISTRESS. BILATERAL SOFT RESTRAINTS ON. ALL SAFETY MEASURES IN PLACE. BED IN LOWEST POSITION AND LOCKED. BED ALARM ON. SIDE RAILS UP X3, PLACE CALL LIGHT WITHIN REACH. WILL CONTINUE TO MONITOR.
[2023-01-13] MEDS: ENSURE ENLIVE 237 ML LIQUID (VANILLA) PO SCH ×2 (07:40→16:57)
[2023-01-13 08:00] VITALS: BP 134/80
[2023-01-13] MEDS: HALOPERIDOL 5 MG TABLET PO SCH ×3 (08:35→17:01)
[2023-01-13] MEDS: LEVOFLOXACIN (250MG) 250 MG TABLET PO SCH (08:36)
[2023-01-13] MEDS: CHLORDIAZEPOXIDE HCL 25 MG CAPSULE PO SCH ×3 (08:36→17:01)
[2023-01-13] MEDS: PANTOPRAZOLE 40 MG TABLET.DR PO SCH (08:36)
[2023-01-13] MEDS: THIAMINE HCL 100 MG TABLET PO SCH (08:36)
[2023-01-13] MEDS: FOLIC ACID 1 MG TABLET PO SCH (08:36)
[2023-01-13 12:00] VITALS: BP 139/86
[2023-01-13] MEDS: IV NS 0.9% 1,000 ML IV PRN (14:53)
[2023-01-13 16:00] VITALS: BP 147/97
--- NOTE | 2023-01-13 19:22 | NUR ---
RN CLOSING NOTE PT IN BED, AWAKE, CONFUSED VERBALLY RESPONSIVE. ON ROOM AIR, NO S/S OF RESPIRATORY DISTRESS. NSR ON THE MONITOR. IV ACCESS ON LFA#22G INTACT AND PATENT. RUNNING NS AT 100 ML/HR. NO C/O PAIN OR DISCOMFORT. NO ACUTE DISTRESS. BILATERAL SOFT RESTRAINTS ON. ALL SAFETY MEASURES IN PLACE. BED IN LOWEST POSITION AND LOCKED. BED ALARM ON. SIDE RAILS UP X3, PLACE CALL LIGHT WITHIN REACH. WILL ENDORSE TO THE UPCOMING SHIFT FOR TERRI.
--- NOTE | 2023-01-13 19:30 | NUR ---
neon sign maker Opening Note Received pt in bed, awake, a/o x 1-2, able to communicate but with periods of confusion. Currently on RA, tolerating well with no s/sx of acute respi distress noted at this time. No SOB, breathing is even and unlabored. Tele monitor reads ST with HR in 100s. IV access on LFA, #22g running NS @ 100 cc/hr, patent and intact, flushes well. Bilateral soft wrist restraints in place. No skin and circulatory issues at this time. All safety measures in place: bed locked in low position, bed alarm on, sr up x 3, call light and table within reach. will continue to monitor.
[2023-01-13 20:00] VITALS: BP 153/105
[2023-01-14] VITALS: BP 147/102
[2023-01-14] MEDS: IV NS 0.9% 1,000 ML IV PRN ×2 (01:31→11:15)
[2023-01-14 04:00] VITALS: BP 141/90
[2023-01-14 06:36] LABS: BASOPHILS % (AUTO) 0.1 % (0.0-2.0); EOSINOPHILS % (AUTO) 0.9 % (0.0-6.0); HEMATOCRIT 42 % (39-51); HEMOGLOBIN 13.8 g/dL (13.5-17.5); LYMPHOCYTES # (AUTO) 0.6 K/uL (0.8-4.8); LYMPHOCYTES % (AUTO) 13.5 % (20.0-44.0); MEAN CORPUSCULAR HGB CONC 33 g/dl (31.0-36.0); MEAN CORPUSCULAR VOLUME 90 fL (80-96); MONOCYTES # (AUTO) 1.2 K/uL (0.1-1.30); MONOCYTES % (AUTO) 27.8 % (2.0-12.0); NEUTROPHILS # (AUTO) 2.6 K/uL (1.8-8.9); NEUTROPHILS % (AUTO) 57.7 % (43.0-81.0); PLATELET COUNT (AUTO) 233 K/uL (150-450); RED BLOOD CELL COUNT(AUTO) 4.71 MIL/uL (4.5-6.0); WHITE BLOOD COUNT (AUTO) 4.5 K/uL (4.3-11.0)
--- NOTE | 2023-01-14 06:46 | NUR ---
[facility] CLOSING NOTE NO SIGNIFICANT CHANGE T/O THE NIGHT. PT REMAINED CONFUSED. RESTRAINTS STILL IN PLACE. ALL NEEDS MET. PM CARE DONE. TURNED AND REPOSITIONED. WILL ENDORSE TO AM SHIFT NURSE FOR TERRI.
[2023-01-14 06:47] LABS: CALCIUM, SERUM 9.3 mg/dL (8.5-10.1); CREATININE 0.8 mg/dL (0.6-1.3); POTASSIUM 3.7 mmol/L (3.5-5.1)
[2023-01-14] MEDS: ENSURE ENLIVE 237 ML LIQUID (VANILLA) PO SCH ×2 (07:46→16:54)
[2023-01-14 08:00] VITALS: BP 145/90
[2023-01-14] MEDS: THIAMINE HCL 100 MG TABLET PO SCH (08:05)
[2023-01-14] MEDS: FOLIC ACID 1 MG TABLET PO SCH (08:05)
[2023-01-14] MEDS: CHLORDIAZEPOXIDE HCL 25 MG CAPSULE PO SCH ×3 (08:05→16:50)
[2023-01-14] MEDS: PANTOPRAZOLE 40 MG TABLET.DR PO SCH (08:06)
[2023-01-14] MEDS: LEVOFLOXACIN (250MG) 250 MG TABLET PO SCH (08:06)
[2023-01-14] MEDS: HALOPERIDOL 5 MG TABLET PO SCH ×3 (08:06→16:50)
[2023-01-14] MEDS: LORAZEPAM INJ 2 MG/ML VIAL IV PRN (10:54)
[2023-01-14 12:00] VITALS: BP 137/71
[2023-01-14 16:00] VITALS: BP 120/71
--- NOTE | 2023-01-14 18:45 | NUR ---
RN CLOSING NOTE PT IN BED, AWAKE, CONFUSED VERBALLY RESPONSIVE. ON ROOM AIR, NO S/S OF RESPIRATORY DISTRESS. SR ON THE MONITOR. IV ACCESS ON LFA#22G INTACT AND PATENT. RUNNING NS AT 100 ML/HR. NO C/O PAIN OR DISCOMFORT. NO ACUTE DISTRESS. BILATERAL SOFT RESTRAINTS ON. ALL SAFETY MEASURES IN PLACE. BED IN LOWEST POSITION AND LOCKED. BED ALARM ON. SIDE RAILS UP X3, PLACE CALL LIGHT WITHIN REACH. WILL ENDORSE TO THE ACCOUNTS PAYABLE ASSOCIATE FOR TERRI.
[2023-01-14 20:00] VITALS: BP 155/94
[2023-01-15] VITALS: BP 126/88
[2023-01-15 00:18] LABS: BAND % (MANUAL) 4 % (0.0-5.0); BASOPHILS % (MANUAL) 0 % (0.0-2.0); EOSINOPHILS % (MANUAL) 0 % (0-4); LYMPHOCYTES % (MANUAL) 14 % (16-48); MONOCYTES % (MANUAL) 25 % (0-11.0); NEUTROPHILS % (MANUAL) 57 (42-76)
[2023-01-15 04:00] VITALS: BP 128/93
--- NOTE | 2023-01-15 06:38 | NUR ---
END OF SHIFT, PATIENT ASLEEP AT THIS TIME, AT ROOM AIR WITH O2 SAT LEVEL WNL, NSR IN TELE MONITOR, IV SITE PATIENT AND INTACT, IVF INFUSING ORDERED, BILATERAL SOFT WRIST RESTRAINS IN PLACED, NO ABNORMALITY NOTED IN SKIN, NO CIRCULATION COMPROMISED, SIDE RAILS OF BED PADDED FOR SEIZURE PRECAUTIONS, BED LOCKED AND IN LOWEST POSITION, S/R IP X2, INDEPENDENT WITH REPOSITION, WILL ENDORSE CONTINUITY OF CARE TO ONCOMING NURSE.
[2023-01-15] MEDS: IV NS 0.9% 1,000 ML IV PRN ×2 (06:45→16:26)
--- NOTE | 2023-01-15 07:14 | NUR ---
PRODUCTION DIRECTOR OPENING NOTES Received pt asleep in bed. No signs of pain or discomfort at this time. Pt is currently on RA and tolerating it well. IV access on LFA 20G patent and intact running IVF NS at 100cc/hr. HOB elevated to pts comfort. Siderails up at all times. Call light within reach. Will continue to monitor.
[2023-01-15 08:00] VITALS: BP 144/97
[2023-01-15] MEDS: ENSURE ENLIVE 237 ML LIQUID (VANILLA) PO SCH ×2 (08:00→17:31)
[2023-01-15] MEDS: PANTOPRAZOLE 40 MG TABLET.DR PO SCH (10:13)
[2023-01-15] MEDS: HALOPERIDOL 1 MG TABLET PO SCH ×3 (10:13→17:13)
[2023-01-15] MEDS: CHLORDIAZEPOXIDE HCL 25 MG CAPSULE PO SCH ×3 (10:13→17:13)
[2023-01-15] MEDS: FOLIC ACID 1 MG TABLET PO SCH (10:14)
[2023-01-15] MEDS: THIAMINE HCL 100 MG TABLET PO SCH (10:14)
[2023-01-15 16:00] VITALS: BP 118/94
--- NOTE | 2023-01-15 18:41 | NUR ---
INDEPENDENT LIVING ADVISOR CLOSING NOTES All due meds and tx gien as ordered. Pt tolerated everything well. All needs attended to. Call light within reach. Will endorse to oncoming nurse.
--- NOTE | 2023-01-15 20:06 | NUR ---
noc rn opening note received patient in bed a/ox2, no s/s of apparent distress in room air. denies any pain. left forearm running NS @100mls/hr. bila. soft wrist restraints in place. safety in place-- bed in lowest, locked position, bed rails upX4 and padded will continue with the plan for patient and continue to monitor for withdrawal.
[2023-01-16] MEDS: IV NS 0.9% 1,000 ML IV PRN ×3 (02:56→23:19)
[2023-01-16 05:00] VITALS: BP 143/93
--- NOTE | 2023-01-16 06:48 | NUR ---
noc rn closing note Patient in bed with eyes closed, easy to arouse. no s/s of apparent distress in room air. denies any pain at this time. IV NS running @ 100mls/hr. all needs attended. all scheduled medications administered. safety in place-- bed in lowest, locked position, call light within reach, bed rails up X4, padded. will endorse to morning shift rn for continuity of care.
--- NOTE | 2023-01-16 07:10 | NUR ---
RN OPENING NOTE PT IN BED, AWAKE, ALERT/ORIENTED X 1-2 WITH CONFUSION AND VERBALLY RESPONSIVE. ON ROOM AIR, NO S/S OF RESPIRATORY DISTRESS. SR ON THE MONITOR. IV ACCESS ON LFA#22G INTACT AND PATENT. RUNNING NS AT 100 ML/HR. NO C/O PAIN OR DISCOMFORT. NO ACUTE DISTRESS. ALL SAFETY MEASURES IN PLACE. BED IN LOWEST POSITION AND LOCKED. BED ALARM ON. SIDE RAILS UP X3, PLACE CALL LIGHT WITHIN REACH. WILL CONTINUE TO MONITOR.
[2023-01-16] MEDS: PANTOPRAZOLE 40 MG TABLET.DR PO SCH (08:04)
[2023-01-16] MEDS: HALOPERIDOL 1 MG TABLET PO SCH (08:05)
[2023-01-16] MEDS: THIAMINE HCL 100 MG TABLET PO SCH (08:05)
[2023-01-16] MEDS: FOLIC ACID 1 MG TABLET PO SCH (08:05)
[2023-01-16] MEDS: CHLORDIAZEPOXIDE HCL 25 MG CAPSULE PO SCH ×3 (08:05→16:45)
[2023-01-16] MEDS: ENSURE ENLIVE 237 ML LIQUID (VANILLA) PO SCH ×2 (08:06→16:54)
[2023-01-16] MEDS: LORAZEPAM INJ 2 MG/ML VIAL IV PRN (10:36)
[2023-01-16] MEDS ORDERED: TEMAZEPAM 7.5 MG CAPSULE PO PRN (12:30)
[2023-01-16] MEDS: HALOPERIDOL 5 MG TABLET PO SCH ×2 (13:42→16:45)
[2023-01-16] MEDS: GABAPENTIN 100 MG CAPSULE PO SCH ×2 (13:42→16:45)
[2023-01-16 16:00] VITALS: BP 134/78
--- NOTE | 2023-01-16 18:43 | NUR ---
RN CLOSING NOTE PT IN BED, AWAKE, CONFUSED VERBALLY RESPONSIVE. ON ROOM AIR, NO S/S OF RESPIRATORY DISTRESS. SR ON THE MONITOR. IV ACCESS ON LFA#22G INTACT AND PATENT. RUNNING NS AT 100 ML/HR. NO C/O PAIN OR DISCOMFORT. NO ACUTE DISTRESS. BILATERAL SOFT RESTRAINTS ON. ALL SAFETY MEASURES IN PLACE. BED IN LOWEST POSITION AND LOCKED. BED ALARM ON. SIDE RAILS UP X3, PLACE CALL LIGHT WITHIN REACH. WILL ENDORSE TO THE MEN'S GARMENT FITTER FOR TERRI.
--- NOTE | 2023-01-16 19:30 | NUR ---
MS RN OPENING NOTE RECEIVED PATIENT IN BED, AWAKE, CONFUSED. AFEBRILE AND NOT IN ANY FORM OF ACUTE DISTRESS. BREATHING EVEN AND NON LABORED. NO C/O PAIN OR DISCOMFORT AT THIS TIME. WITH IV ACCESS ON RAC 18G RUNNING WITH NS AT 100ML/HR. ON BILATERAL SOFT WRIST RESTRAINTS, NOTED WITH SKIN INTACT AND GOOD CIRCULATION. SAFETY MEASURES IN PLACE. KEPT BED IN LOCKED AND IN LOW POSITION. SIDE RAILS UP X2. ADVISED TO USE THE CALL LIGHT WHEN IN NEED OF ASSISTANCE.
[2023-01-16 20:00] VITALS: BP 136/89
[2023-01-16 20:06] LABS: VITAMIN B1 THIAMINE,WB 135.7 nmol/L (66.5-200.0)
[2023-01-17 04:00] VITALS: BP 136/86
--- NOTE | 2023-01-17 06:22 | NUR ---
MS RN CLOSING NOTE PATIENT IN BED, SLEEPING INTERMITTENTLY. AFEBRILE AND NOT IN ANY FORM OF ACUTE DISTRESS. BREATHING EVEN AND NON LABORED. NO C/O PAIN OR DISCOMFORT THROUGHOUT THE SHIFT. WITH IV ACCESS ON RAC 18G RUNNING WITH NS AT 100ML/HR. MEDICATED ORDERED. SEIZURE PRECAUTION OBSERVED. SAFETY MEASURES IN PLACE. KEPT BED IN LOCKED AND IN LOW POSITION. SIDE RAILS UP X2. ADVISED TO USE THE CALL LIGHT WHEN IN NEED OF ASSISTANCE. ALL NURSING NEEDS ATTENDED. ENDORSED TO INCOMING SHIFT FOR CONTINUITY OF CARE.
--- NOTE | 2023-01-17 07:00 | NUR ---
MS RN OPENING NOTE PATIENT IN BED, SLEEPING INTERMITTENTLY. AFEBRILE AND NOT IN ANY FORM OF ACUTE DISTRESS. ON ROOM AIR BREATHING EVEN AND NON LABORED WITH NO PAIN OR DISCOMFORT NOTED. IV ACCESS ON RAC 18G RUNNING WITH NS AT 100ML/HR. MEDICATED ORDERED. SAFETY MEASURES IN PLACE. BED IN LOWEST AND LOCKED POSITION. SIDE RAILS UP X2. CALL LIGHT AND TABLE WITHIN REACH. WILL CONTINUE TO MONITOR.
[2023-01-17 08:00] VITALS: BP 140/96
[2023-01-17] MEDS: ENSURE ENLIVE 237 ML LIQUID (VANILLA) PO SCH ×2 (08:06→16:17)
[2023-01-17] MEDS: CHLORDIAZEPOXIDE HCL 25 MG CAPSULE PO SCH ×3 (08:33→16:23)
[2023-01-17] MEDS: GABAPENTIN 100 MG CAPSULE PO SCH ×3 (08:33→16:23)
[2023-01-17] MEDS: PANTOPRAZOLE 40 MG TABLET.DR PO SCH (08:33)
[2023-01-17] MEDS: FOLIC ACID 1 MG TABLET PO SCH (08:33)
[2023-01-17] MEDS: THIAMINE HCL 100 MG TABLET PO SCH (08:33)
[2023-01-17] MEDS: HALOPERIDOL 5 MG TABLET PO SCH ×4 (08:33→22:32)
[2023-01-17] MEDS: IV NS 0.9% 1,000 ML IV PRN (09:35)
--- NOTE | 2023-01-17 13:35 | NUR ---
RN NOTE PATIENT NOTED WITH RED, SWOLLEN AND WARM TO TOUCH RIGHT HAND. DOCTOR EVER ZAFAR INFORMED AND RECEIVED ORDER FOR ULTRASOUND OF RIGHT UPPER EXTREMITY. ORDER PLACED. AND IV ACCESS REMOVED.
[2023-01-17 16:00] VITALS: BP 125/78
[2023-01-17] MEDS ORDERED: TEMAZEPAM 7.5 MG CAPSULE PO PRN (17:30)
[2023-01-17] MEDS: LORAZEPAM INJ 2 MG/ML VIAL IV PRN (17:37)
[2023-01-17] MEDS: LORAZEPAM 1 MG TABLET PO SCH (18:09)
--- NOTE | 2023-01-17 19:24 | NUR ---
MS RN CLOSING NOTE PATIENT IN BED, AWAKE, ALERT AND ORIENTED X2 WITH SOME CONFUSION. ON ROOM AIR BREATHING EVEN AND NON LABORED WITH NO PAIN OR DISCOMFORT NOTED. IV ACCESS ON LEFT ARM BREANNA 22 WITH NS AT 100ML/HR. MEDICATED ORDERED. PATIENT WAS REPOSITIONED EVERY TWO HOURS. SAFETY MEASURES IN PLACE. BED IN LOWEST AND LOCKED POSITION. SIDE RAILS UP X2. CALL LIGHT AND TABLE WITHIN REACH. REPORT GIVEN TO CONDITIONING COACH NURSE FOR CONTINUING OF CARE.
--- NOTE | 2023-01-17 19:30 | NUR ---
MS RN OPENING NOTE RECEIVED PATIENT IN BED, ASLEEP, WITH CONFUSION. NO ACUTE DISTRESS, BREATHING EVEN AND NON LABORED. NO C/O PAIN OR DISCOMFORT AT THIS TIME. IV ACCESS TO RIGHT AC 18G RUNNING NS AT 100ML/HR. SAFETY MEASURES IN PLACE. KEPT BED IN LOCKED AND IN LOW POSITION. SIDE RAILS UP X2. CALL LIGHT WITHIN REACH. WILL CONTINUE TO MONITOR THROUGHOUT SHIFT.
[2023-01-17 20:00] VITALS: BP 127/90
[2023-01-18] VITALS: BP 127/90
[2023-01-18] MEDS: LORAZEPAM 1 MG TABLET PO SCH ×3 (00:58→17:57)
[2023-01-18] MEDS: LORAZEPAM INJ 2 MG/ML VIAL IV PRN (03:30)
--- NOTE | 2023-01-18 03:30 | NUR ---
MS RN NOTE PATIENT IS VERY RESTLESS, AND ANXIOUS. HE IS TRYING TO GET OUT OF BED. ATIVAN 2MG IV ADMINISTERED TO PATIENT.
[2023-01-18 04:00] VITALS: BP 128/88
--- NOTE | 2023-01-18 07:03 | NUR ---
MS RN CLOSING NOTE LEFT PATIENT IN BED, AWAKE. PT ALERT AND ORIENTED X2, WITH SOME CONFUSION. ON ROOM AIR BREATHING EVEN AND NON LABORED. NO PAIN OR DISCOMFORT NOTED. IV ACCESS TO LEFT ARM BREANNA 22 WITH NS AT 100ML/HR. ALL NEEDS ATTENDED, PT LEFT CLEAN, AND DRY. PATIENT WAS REPOSITIONED EVERY TWO HOURS. SAFETY MEASURES IN PLACE. BED IN LOWEST AND LOCKED POSITION. SIDE RAILS UP X2. CALL LIGHT AND TABLE WITHIN REACH. REPORT GIVEN TO MORNING SHIFT NURSE FOR CONTINUING OF CARE.
--- NOTE | 2023-01-18 07:15 | NUR ---
BUSINESS BANKING MANAGER OPENING NOTE PATIENT RESTLESS, AWAKE AND CONFUSED AT PRESENT, NO S/S OF RESPIRATORY DISTRESS NOTED, N ROOM AIR 100% SAT. ON ASPIRATION PRECAUTION. RE-ORIENTED AND ALSO INSTRUCTED NOT TO GET OUT OF BED WITHOUT CALLING FOR HELP. PATIENT IS JUST TALKING. SAFETY MEASURES IN PLACE, BED LOCKED TO THE LOWEST POSITION, CALL LIGHT AND TABLE WITHIN TEACH. SIDE RAILS ELEVATED X4, CONT. TO MONITOR.
[2023-01-18] MEDS: THIAMINE HCL 100 MG TABLET PO SCH (09:01)
[2023-01-18] MEDS: PANTOPRAZOLE 40 MG TABLET.DR PO SCH (09:01)
[2023-01-18] MEDS: HALOPERIDOL 5 MG TABLET PO SCH ×5 (09:02→21:37)
[2023-01-18] MEDS: GABAPENTIN 100 MG CAPSULE PO SCH ×3 (09:02→17:27)
[2023-01-18] MEDS: FOLIC ACID 1 MG TABLET PO SCH (09:02)
[2023-01-18] MEDS: ENSURE ENLIVE 237 ML LIQUID (VANILLA) PO SCH ×2 (09:03→12:35)
[2023-01-18 12:00] VITALS: BP 112/71
[2023-01-18 16:00] VITALS: BP 112/71
--- NOTE | 2023-01-18 18:50 | NUR ---
PROPERTY MANAGER NOTE PATIENT VERY UNCOOPERATIVE,GETTING OUT OF THE BED WITHOUT AND PULLING IV LINE. DR. CURTIS ORDERED BILATERAL SOFT WRIST RESTRAINS, WE ARE FOLLOWING PER HOSPITAL PROTOCOL. PATIENT ON RESTRAINTS, SIDE RAILS UP X4, BED ALARM ON, BED TO LOWEST POSITION. PATIENT'S FACE FLUSHED PINK. CONT. TO MONITOR.
--- NOTE | 2023-01-18 19:00 | NUR ---
TAG MACHINE OPERATOR CLOSING NOTE PATIENT CALM, ALERT AND COOPERATIVE. RESTING IN BED, NO S/S OF RESPIRATORY DISTRESS NOTED.IV SITE INTACT, SIDE RAILS UP X4. SAFETY MEASURES IN PLACE, BED LOCKED TO THE LOWEST POSITION, CALL LIGHT AND TABLE WITHIN REACH. DENIES PAIN AT PRESENT, DENIES NAUSEAS. I WILL ENDORSE TO THE FOLLOWING NURSE.
--- NOTE | 2023-01-18 19:00 | NUR ---
SUPERVISOR CLEANING AND ANNEALING CLOSING NOTE PATIENT IN BED, AWAKE, CONFUSED ON BILATERAL SOFT RESTRAINTS IN PLACE. SIDE RAILS UPX4. IVF INFUSING WITHOUT DIFFICULTY. 02 SAT IN ROOM AIR 95%. NO S/S OF RESPIRATORY DISTRESS NOTED. I WILL ENDORSE TO THE FOLLOWING NURSE.
--- NOTE | 2023-01-18 19:00 | NUR ---
RN OPENING NOTE RECEIVED PT AWAKE IN BED. PT IS A/O X 2, ABLE TO MAKE NEEDS KNOWN. PT IS IN RA TOLERATING WELL, BREATHING EVEN AND UNLABORED @THIS TIME. PT IV PRESENT IS ON THE LEFT HAND #22G, INTACT, PATENT & FLUSHES WELL W/ NO S&SX OF INFILTRATION @ SITE NOTED. SAFETY MEASURES IS IN PLACE. BED IN LOWEST AND LOCKED POSITION. SIDE RAILS UP X 4, PADDED. BEDSIDE TABLE AND CALL LIGHT IS EASY REACH. BED ALARM IS ON. WILL CONTINUE TO MONITOR PT ACCORDINGLY.
[2023-01-18] MEDS: IV NS 0.9% 1,000 ML IV PRN (19:29)
[2023-01-18 20:00] VITALS: BP 158/107
--- NOTE | 2023-01-18 21:37 | NUR ---
NURSE INFORMED PT REGARDING THE DUE MEDICATION, HALDOL 5MG. PT SAID YES. NURSE REMOVED THE PILL FROM THE PACKAGING. BUT WHEN NURSE REPOSITION THE PT, THE PT REFUSES TO TAKE THE MEDICATION. NURSE INFORMED CHARGE NURSE. NURSE WASTE THE MEDICATION IN THE PROPER CONTAINER WITNESSED BY NURSE DIAZ.
[2023-01-19] VITALS: BP 158/107
[2023-01-19] MEDS: LORAZEPAM 1 MG TABLET PO SCH ×3 (00:34→16:33)
[2023-01-19 04:00] VITALS: BP 143/93
[2023-01-19] MEDS: IV NS 0.9% 1,000 ML IV PRN ×2 (06:05→15:48)
--- NOTE | 2023-01-19 06:34 | NUR ---
RN CLOSING NOTE PT AWAKE & RESTING COMFORTABLY IN BED. PT IS A/O X 2, RESPONSIVE AND FOLLOWS VERBAL COMMAND. PT IS IN RA W/ NO S&SX OF RESPIRATORY DISTRESS @THIS TIME. PT IV PRESENT IS ON THE LEFT HAND #22G RUNNING NS @100 MLS/HR, INTACT, PATENT & FLUSHES WELL W/ NO S&SX OF INFILTRATION @ SITE NOTED. SAFETY MEASURES IS IN PLACE. BED IN LOWEST AND LOCKED POSITION. SIDERAILS UP X 4, PADDED. BEDSIDE TABLE AND CALL LIGHT IS EASY REACH. BED ALARM IS ON. WILL ENDORSE TO THE NEXT SHIFT FOR TERRI.
--- NOTE | 2023-01-19 07:00 | NUR ---
ICE GUARD SKATING RINK OPENING NOTE PATIENT IS GETTING OUT OF BED, PATIENT AWAKE, ORIENTED TO NAME ONLY, CONFUSED. PATIENT NEED FREQUENT ORIENTATION TO HIS SURROUNDING AND LIMITATIONS ACTIVITIES. ON ROOM AIR 02 SAT 99%, NO S/S OF RESPIRATORY DISTRESS NOTED. PATIENT DENIES SOB, ALSO DENIES PAIN. FACIAL FLUSHED PINK-RED COLOR NOTED. IV ACCESS TO LEFT ARM INTACT INFUSING IVF NS@100ML/HR. INCONTINENT, NO SKIN ISSUES NOTED. BILATERAL SOFT WRIST RESTRAINTS IN PLACE, FOLLOWING RESTRAINTS PROTOCOL. SAFETY MEASURES IN PLACE, BED LOCKED TO THE LOWEST POSITION, CALL LIGHT WITHIN REACH. CONT. TO MONITOR.
[2023-01-19 08:00] VITALS: BP 154/100
--- NOTE | 2023-01-19 08:00 | NUR ---
MAILMASTER NOTE PATIENT B/P 154/100 HR 98 RESP 20 TEMP 97.6, PATIENT IS GETTING OUT OF BED, REPOSITIONED IN BED. I WILL RE-CHECK BLOOD PRESSURE UPON PATIENT COME DOWN. HOB ELEVATED, SIDE RAILS UPX4. PATIENT DENIES PAIN. CONT. TO MONITOR.
[2023-01-19] MEDS: GABAPENTIN 100 MG CAPSULE PO SCH ×3 (08:09→16:33)
[2023-01-19] MEDS: THIAMINE HCL 100 MG TABLET PO SCH (08:09)
[2023-01-19] MEDS: HALOPERIDOL 5 MG TABLET PO SCH ×4 (08:09→21:55)
[2023-01-19] MEDS: FOLIC ACID 1 MG TABLET PO SCH (08:09)
[2023-01-19] MEDS: PANTOPRAZOLE 40 MG TABLET.DR PO SCH (08:09)
[2023-01-19] MEDS: ENSURE ENLIVE 237 ML LIQUID (VANILLA) PO SCH ×2 (08:10→16:34)
--- NOTE | 2023-01-19 09:30 | NUR ---
MINING TEACHER NOTE PATIENT MORE RELAX, B/P 129/88 HR 82 02 SAT ROOM AIR 97%. PATIENT DENIES PAIN AND DENIES SOB. HOB ELEVATED. CONT. TO MONITOR.
[2023-01-19 12:00] VITALS: BP 129/88
[2023-01-19 16:00] VITALS: BP 125/78
--- NOTE | 2023-01-19 18:46 | NUR ---
DESIGN ENGINEER MARINE EQUIPMENT CLOSING NOTE PATIENT IS NOT COOPERATIVE, TRYING TO GET OUT OF BED, PATIENT IS AWAKE AND CONFUSED. 02 SAT IN ROOM AIR 97% NO S/S OF RESPIRATORY DISTRESS NOTED. HOB ELEVATED IV ACCESS LEFT ARM INTACT INFUSING NS@100ML/HR. PATIENT DENIES PAIN, INCONTINENT, NO SKIN ISSUES NOTED, FACIAL REMAIN FLUSHED PINK-RED. SAFETY MEASURES IN PLACE, PATIENT ON BILATERAL WRIST SOFT RESTRAINTS FOLLOWING PROTOCOL. SIDE RAILS UPX4, BED LOCKED TO THE LOWEST POSITION, CALL LIGHT WITHIN REACH, BED ALARM ON. I WILL ENDORSE TO THE FOLLOWING NURSE.
--- NOTE | 2023-01-19 19:00 | NUR ---
TUBE ROOM SUPERVISOR opening note PT resting in bed, awake, agitated, on restrains, in stable condition, A&Ox2, breathing even and unlabored, on RA, L hand 22G C/D/I, NS 100cc/ hr infusing well, all safety measures are in place, will continue to monitor
[2023-01-19 20:00] VITALS: BP 158/98
[2023-01-20] VITALS: BP 158/98
[2023-01-20] MEDS: LORAZEPAM 1 MG TABLET PO SCH ×3 (00:55→18:11)
[2023-01-20] MEDS: IV NS 0.9% 1,000 ML IV PRN ×2 (01:01→15:35)
[2023-01-20 04:00] VITALS: BP 124/81
--- NOTE | 2023-01-20 06:34 | NUR ---
CELLAR SUPERVISOR closing note PT resting in bed, asleep, in stable condition, A&Ox2, breathing even and unlabored, on RA, L hand 22G C/D/I, NS 100cc/ hr infusing well, all due meds given per MD orders tolerated well, all basic needs met and anticipated, all safety measures are in place, will continue to monitor
[2023-01-20 07:39] LABS: BASOPHILS % (AUTO) 0.6 % (0.0-2.0); EOSINOPHILS % (AUTO) 1.9 % (0.0-6.0); HEMATOCRIT 43 % (39-51); HEMOGLOBIN 13.9 g/dL (13.5-17.5); LYMPHOCYTES # (AUTO) 0.7 K/uL (0.8-4.8); MEAN CORPUSCULAR HGB CONC 32 g/dl (31.0-36.0); MEAN CORPUSCULAR VOLUME 90 fL (80-96); MONOCYTES # (AUTO) 0.8 K/uL (0.1-1.30); MONOCYTES % (AUTO) 21.4 % (2.0-12.0); NEUTROPHILS # (AUTO) 2.1 K/uL (1.8-8.9); NEUTROPHILS % (AUTO) 56.1 % (43.0-81.0); PLATELET COUNT (AUTO) 435 K/uL (150-450); RED BLOOD CELL COUNT(AUTO) 4.78 MIL/uL (4.5-6.0); WHITE BLOOD COUNT (AUTO) 3.7 K/uL (4.3-11.0)
--- NOTE | 2023-01-20 07:47 | NUR ---
RN OPENING NOTES: RECEIVED PT AWAKE, PT IS A/O X 2, CONFUSED, RESPONSIVE AND FOLLOWS VERBAL COMMANDS. PT IS ON RA W/ NO S/O OF SOB, DENIES PAIN AT THIS TIME. . IV ACCESS ON THE LEFT HAND #22G RUNNING NS @100 MLS/HR, INTACT, PATENT. ALL SAFETY MEASURES IN PLACE, BED IN LOWEST AND LOCKED POSITION; SIDERAILS UP X 4, PADDED. BEDSIDE TABLE AND CALL LIGHT IS EASY REACH; BED ALARM IS ON; WILL CONT WITH PLAN OF CARE DURING SHIFT. Addendum: 01/20/23 at 1743 by SHU FITZPATRICK RN BILATERAL SOFT WRIST RESTRAINTS NOTED, CHECKED SKIN FOR CIRCULATION, NO ISSUES NOTED, WILL CONT TO ASSESS PER UNIT PROTOCOL.
[2023-01-20 07:57] LABS: CALCIUM, SERUM 9.3 mg/dL (8.5-10.1); CREATININE 0.9 mg/dL (0.6-1.3); MAGNESIUM 1.5 mg/dL (1.8-2.4); PHOSPHORUS 4.2 mg/dL (2.5-4.9); POTASSIUM 3.4 mmol/L (3.5-5.1)
[2023-01-20 08:00] VITALS: BP 141/98
[2023-01-20] MEDS: GABAPENTIN 100 MG CAPSULE PO SCH ×3 (09:11→16:11)
[2023-01-20] MEDS: HALOPERIDOL 5 MG TABLET PO SCH ×4 (09:12→21:54)
[2023-01-20] MEDS: FOLIC ACID 1 MG TABLET PO SCH (09:12)
[2023-01-20] MEDS: ENSURE ENLIVE 237 ML LIQUID (VANILLA) PO SCH ×2 (09:12→17:11)
[2023-01-20] MEDS: PANTOPRAZOLE 40 MG TABLET.DR PO SCH (09:12)
[2023-01-20] MEDS: THIAMINE HCL 100 MG TABLET PO SCH (09:12)
[2023-01-20] MEDS ORDERED: POTASSIUM CHLORIDE 20 MEQ TAB.PRT.SR PO ONE (10:00)
[2023-01-20] MEDS ORDERED: K PHOS NEUTRAL 250 MG TABLET PO ONE (10:30)
[2023-01-20] MEDS ORDERED: MAGNESIUM OXIDE 400 MG TABLET PO ONE (10:30)
[2023-01-20 12:00] VITALS: BP 141/98
--- NOTE | 2023-01-20 12:00 | NUR ---
RN NOTES: SPOKE TO SUSHANT , - PT'S FRIEND, JUANALINDA. RN PASSED PHONE TO PT TO SPEAK TO SUSHANT, PROVIDED UPDATE AND GAVE CONTACT # TO CM TO F/U WITH SNF PLACEMENT.
--- NOTE | 2023-01-20 15:30 | NUR ---
RN NOTES; PT APPEARED VERY AGITATED AND TRYING TO GET OUT OF BED MULTIPLE TIMES. PT GIVEN ATIVAN IV PUSH. PT REORIENTED AND DECREASED STIMULI, CALL LIGHT AND TABLE PLACED WITHIN REACH, WILL CONT TO MONITOR PER UNIT PROTOCOL.
[2023-01-20] MEDS: LORAZEPAM INJ 2 MG/ML VIAL IV PRN (15:34)
[2023-01-20 16:00] VITALS: BP 144/89
--- NOTE | 2023-01-20 18:28 | NUR ---
MS RN CLOSING NOTES: PT AWAKE, PT IS A/O X 2, CONFUSED, RESPONSIVE AND FOLLOWS VERBAL COMMANDS. PT IS ON RA W/ NO S/S OF SOB, DENIES PAIN AT THIS TIME. IV ACCESS AT LEFT HAND #22G RUNNING NS @100 ML/HR. BILATERAL WRIST RESTRAINTS IN PLACE, ASSESSED PER UNIT PROTOCOL, NO ISSUES NOTED, SKIN INTACT AND CIRCULATION WNL. ALL NEEDS MET, KEPT PT CLEAN, DRY AND COMFORTABLE. ALL SAFETY MEASURES IN PLACE, BED IN LOWEST AND LOCKED POSITION; SIDERAILS UP X 4, PADDED X2, WILL ENDORSE TO PM SHIFT.
--- NOTE | 2023-01-20 19:00 | NUR ---
VICE PRESIDENT GLOBAL DIGITAL MARKETING opening note PT resting in bed, awake, agitated, on restrains, in stable condition, A&Ox2, breathing even and unlabored, on RA, L hand 22G C/D/I, NS 100cc/ hr infusing well, all safety measures are in place, will continue to monitor
[2023-01-20 20:00] VITALS: BP 141/104
[2023-01-21] VITALS: BP 141/104
[2023-01-21] MEDS: LORAZEPAM 1 MG TABLET PO SCH ×3 (00:30→16:30)
[2023-01-21 04:00] VITALS: BP 135/94
[2023-01-21] MEDS: IV NS 0.9% 1,000 ML IV PRN ×2 (06:18→16:41)
--- NOTE | 2023-01-21 07:00 | NUR ---
CENTRAL OFFICE MECHANIC closing note PT resting in bed, asleep, in stable condition, A&Ox2, breathing even and unlabored, on RA, L hand 22G C/D/I, NS 100cc/ hr infusing well, all due meds given per MD orders tolerated well, all basic needs met and anticipated, all safety measures are in place, will continue to monitor
--- NOTE | 2023-01-21 07:15 | NUR ---
FORGE HEATER OPENING NOTES Received pt awake in bed AOX1 with episodes of confusion. No complaints of pain or discomfort at this time. Pt is on RA and tolerating it well. IV access on left hand 22g running IVF NS @ 100cc/hr. HOB elevated to pts comfort. Siderails up at al times x4. Call light within reach. Will continue to monitor.
[2023-01-21 08:00] VITALS: BP 124/88
[2023-01-21] MEDS: ENSURE ENLIVE 237 ML LIQUID (VANILLA) PO SCH ×2 (08:17→16:30)
[2023-01-21] MEDS: PANTOPRAZOLE 40 MG TABLET.DR PO SCH (08:19)
[2023-01-21] MEDS: FOLIC ACID 1 MG TABLET PO SCH (08:19)
[2023-01-21] MEDS: HALOPERIDOL 5 MG TABLET PO SCH ×4 (08:20→21:14)
[2023-01-21] MEDS: GABAPENTIN 100 MG CAPSULE PO SCH ×3 (08:20→16:21)
[2023-01-21] MEDS: THIAMINE HCL 100 MG TABLET PO SCH (08:20)
[2023-01-21 08:22] LABS: CALCIUM, SERUM 9.5 mg/dL (8.5-10.1); CREATININE 0.8 mg/dL (0.6-1.3); MAGNESIUM 1.6 mg/dL (1.8-2.4); PHOSPHORUS 3.7 mg/dL (2.5-4.9); POTASSIUM 3.7 mmol/L (3.5-5.1)
[2023-01-21] MEDS ORDERED: MAGNESIUM OXIDE 400 MG TABLET PO ONE (11:00)
[2023-01-21 16:00] VITALS: BP 95/67
--- NOTE | 2023-01-21 16:18 | NUR ---
HAND ALMOND BLANCHER NOTES Blood pressure rechecked and was 126/79, HR 92.
--- NOTE | 2023-01-21 18:43 | NUR ---
RACEBOOK WRITER CLOSING NOTES All due meds and tx given as ordered. Pt tolerated everything well. All needs attended to. Call light within reach. Will endorse to oncoming nurse.
--- NOTE | 2023-01-21 19:42 | NUR ---
noc rn opening received patient in bed a/ox1, no s/s of apparent distress in room air. bila. soft wrist restraints in place. denies pain nor discomfort at this time. IV access on L hand #22g g running ns @100mls/hr. safety in place-- bed in lowest, locked position, side rails up X3, bed alarm in place. will continue to monitor patient.
[2023-01-21 20:00] VITALS: BP 122/83
[2023-01-22] MEDS: LORAZEPAM 1 MG TABLET PO SCH ×3 (01:50→16:59)
--- NOTE | 2023-01-22 01:55 | NUR ---
noc rn note scheduled 0130 Ativan 0.5 given. 0.5 partial dose wasted with POONAM Cisse in proper disposal bin and in the omnicell. will cont. to monitor.
[2023-01-22 05:00] VITALS: BP 111/78
[2023-01-22] MEDS: IV NS 0.9% 1,000 ML IV PRN ×2 (05:48→17:11)
--- NOTE | 2023-01-22 06:13 | NUR ---
noc rn closing note patient in bed still very confused. a/ox1. on bila. soft wrist restraints. Left FA #20g running ns @100mls/hr. safety kept in place throughout shift. all needs attended. all scheduled medication administered. will endorse to morning shift rn for continuity of care.
--- NOTE | 2023-01-22 07:42 | NUR ---
MS RN OPENING NOTE RECEIVED PATIENT IN BED AWAKE. ALERT AND ORIENTED X1. CONFUSED. ON ROOM AIR, TOLERATING WELL, BREATHING EVEN AND UNLABORED WITH NO S/S OF RESPIRATORY DISTRESS OR SOB. IV ACCESS AT LFA 20G, INTACT AND PATENT RUNNING NS AT 100 ML/HR. ON BILATERAL SOFT WRIST RESTRAINTS WITH SKIN INTACT AND WARM TO TOUCH. SAFETY MEASURES IN PLACE WITH BED IN LOWEST LOCKED POSITION, BED ALARM ON, SIDE RAILS UP X4, AND CALL LIGHT AND TABLE WITHIN REACH. WILL CONTINUE TO MONITOR.
[2023-01-22] MEDS: ENSURE ENLIVE 237 ML LIQUID (VANILLA) PO SCH ×2 (08:13→17:08)
[2023-01-22] MEDS: THIAMINE HCL 100 MG TABLET PO SCH (09:33)
[2023-01-22] MEDS: HALOPERIDOL 5 MG TABLET PO SCH ×4 (09:33→23:07)
[2023-01-22] MEDS: PANTOPRAZOLE 40 MG TABLET.DR PO SCH (09:33)
[2023-01-22] MEDS: GABAPENTIN 100 MG CAPSULE PO SCH ×3 (09:33→16:59)
[2023-01-22] MEDS: FOLIC ACID 1 MG TABLET PO SCH (09:33)
[2023-01-22] MEDS ORDERED: MAGNESIUM OXIDE 400 MG TABLET PO ONE (10:00)
[2023-01-22 13:00] VITALS: BP 126/88
[2023-01-22 16:00] VITALS: BP 134/87
--- NOTE | 2023-01-22 18:49 | NUR ---
MS RN CLOSING NOTE ATIENT IN BED ASLEEP. ALERT AND ORIENTED X3 WITH EPISODES OF CONFUSION. ON ROOM AIR SATING AT 100%, TOLERATING WELL, BREATHING EVEN AND UNLABORED WITH NO S/S OF RESPIRATORY DISTRESS OR SOB. IV ACCESS AT LFA 20G, INTACT AND PATENT RUNNING NS AT 100 ML/HR. ON BILATERAL SOFT WRIST RESTRAINTS WITH SKIN INTACT AND WARM TO TOUCH. SAFETY MEASURES IN PLACE WITH BED IN LOWEST LOCKED POSITION, BED ALARM ON, SIDE RAILS UP X4, AND CALL LIGHT AND TABLE WITHIN REACH. WILL ENDORSE TO ONCOMING SHIFT FOR TERRI.
--- NOTE | 2023-01-22 19:40 | NUR ---
MS RN Opening Note Received patient in bed; awake, alert and oriented x 1 with periods of confusion. On room air; tolerating well. Not in any form of respiratory and cardiac distress. Denies any pain or discomfort. With IV access of left forearm 20g; patent and intact running with NS 1L infusing @ 100 ml/hr; flushes well. With bilateral soft wrist restraints in place. Skin and circulation checked; wnl. Able to make needs known. Frequent reorientation done. Fall, aspiration and safety precautions initiated: head of bed elevated, call light and table within reach, side rails up x 2, bed in lowest locked position. Will continue to monitor throughout shift.
[2023-01-23] MEDS: LORAZEPAM 1 MG TABLET PO SCH ×3 (02:25→16:40)
--- NOTE | 2023-01-23 02:25 | NUR ---
RN Note Scheduled 0130 Ativan 0.5 mg 0.5 tablet given po as ordered. 0.5 mg 0.5 tab partial dose wasted with POONAM Isaac in proper disposal bin and in the omnicell. Kept comfortable in bed. Will continue to monitor.
--- NOTE | 2023-01-23 02:40 | NUR ---
RN Note Patient asleep. Bilateral soft wrist restraints released for now. Bed alarm on. Will continue to monitor patient.
[2023-01-23] MEDS: IV NS 0.9% 1,000 ML IV PRN ×3 (02:55→22:41)
[2023-01-23 05:00] VITALS: BP 130/78
--- NOTE | 2023-01-23 06:35 | NUR ---
MS RN Closing Note Patient in bed; awake, a/o x 1 with periods of confusion. Stable on room air. In no acute distress. No c/o pain or discomfort. With IV access on left forearm 20g; patent and intact running with NS 1L infusing @ 100 ml/hr; flushes well. Still with bilateral soft wrist restraints in place. Skin and circulation checked; wnl. All due meds given as ordered. All needs met. Frequent reorientation done. Fall, aspiration and safety precautions maintained. Endorsed to morning shift for continuity of care.
--- NOTE | 2023-01-23 07:20 | NUR ---
MS RN OPENING NOTE: RECEIVED PT IN BED. AOX1 WITH PERIODS OF CONFUSION. ABLE TO DENY PAIN OR DISCOMFORT. ON RA WITH NO RESP DISTRESS NOTED. ON RESTRAINT. SKIN CHECK WITH NO SKIN BREAKDOWN NOTE. CALL LIGHT WITHIN REACH. BED KEPT LOW AND LOCK FOR SAFETY.
[2023-01-23] MEDS: GABAPENTIN 100 MG CAPSULE PO SCH ×2 (09:18→12:12)
[2023-01-23] MEDS: FOLIC ACID 1 MG TABLET PO SCH (09:18)
[2023-01-23] MEDS: PANTOPRAZOLE 40 MG TABLET.DR PO SCH (09:18)
[2023-01-23] MEDS: THIAMINE HCL 100 MG TABLET PO SCH (09:19)
[2023-01-23] MEDS: HALOPERIDOL 5 MG TABLET PO SCH ×4 (09:19→21:06)
[2023-01-23] MEDS: ENSURE ENLIVE 237 ML LIQUID (VANILLA) PO SCH ×2 (09:19→16:41)
[2023-01-23] MEDS ORDERED: MAGNESIUM OXIDE 400 MG TABLET PO ONE (10:00)
[2023-01-23 13:00] VITALS: BP 138/86
[2023-01-23] MEDS: busPIRone 5 MG TABLET PO SCH ×2 (13:11→16:40)
--- NOTE | 2023-01-23 15:00 | NUR ---
MS RN NOTE: OBTAIN ORDER TO D/C RESTRAINT. PT IS AOX2. REORIENTED PT TO PLACE TIME AND DATE. ENCOURAGE PT TO PRESS CALL LIGHT FOR ASSISTANCE. VISUAL CHECK AT REGULAR INTERVAL TO ENSURE SAFETY AND CONCERN . NO EPISODE OF GETTING OUT OF BED. BED KEPT LOW AND LOCK FOR SAFETY
[2023-01-23] MEDS: GABAPENTIN 300 MG CAPSULE PO SCH ×2 (16:40→21:06)
--- NOTE | 2023-01-23 18:23 | NUR ---
MS RN CLOSING NOTE: PATIENT IN BED AWAKE. ALERT AND ORIENTED X1. CONFUSED. ON ROOM AIR, TOLERATING WELL, BREATHING EVEN AND UNLABORED WITH NO S/S OF RESPIRATORY DISTRESS OR SOB. IV ACCESS AT LFA 20G, INTACT AND PATENT RUNNING NS AT 100 ML/HR. SAFETY MEASURES IN PLACE WITH BED IN LOWEST LOCKED POSITION, BED ALARM ON, SIDE RAILS UP X4, AND CALL LIGHT AND TABLE WITHIN REACH.
--- NOTE | 2023-01-23 19:30 | NUR ---
MS RN OPENING NOTE RECEIVED PATIENT IN BED, AWAKE, ALERT TO SELF WITH CONFUSION. AFEBRILE AND NOT IN ANY FORM OF ACUTE DISTRESS. NO C/O PAIN OR DISCOMFORT AT THIS TIME. BREATHING EVEN AND NON LABORED. WITH IV ACCESS ON LFA 20G RUNNING WITH NS AT 100ML/HR. SAFETY MEASURES IN PLACE. KEPT BED IN LOCKED AND IN LOW POSITION. SIDE RAILS UP X2. ADVISED TO USE THE CALL LIGHT WHEN IN NEED OF ASSISTANCE.
[2023-01-23] MEDS: TEMAZEPAM 15 MG CAPSULE PO SCH (20:11)
[2023-01-23 21:00] VITALS: BP 134/90
[2023-01-24 05:00] VITALS: BP 107/71
--- NOTE | 2023-01-24 06:25 | NUR ---
MS RN CLOSING NOTE PATIENT IN BED, ASLEEP BUT EASY TO AROUSE AND RESPONDS TO VERBAL AND TACTILE STIMULI. AFEBRILE AND NOT IN ANY FORM OF ACUTE DISTRESS. NO C/O PAIN OR DISCOMFORT THROUGHOUT THE SHIFT. BREATHING EVEN AND NON LABORED. WITH IV ACCESS ON LFA 20G RUNNING WITH NS AT 100ML/HR. MEDICATED ORDERED. SAFETY MEASURES IN PLACE. KEPT BED IN LOCKED AND IN LOW POSITION. SIDE RAILS UP X2. ADVISED TO USE THE CALL LIGHT WHEN IN NEED OF ASSISTANCE. ALL NURSING NEEDS ATTENDED. ENDORSED TO INCOMING SHIFT FOR CONTINUITY OF CARE.
--- NOTE | 2023-01-24 06:49 | NUR ---
MS RN NOTE PATIENT NOTED WITH INFILTRATED IV ACCESS ON LFA WITH ONGOING IVF OF NS AT 100ML/HR. REINSERTED ANOTHER ONE ON R HAND 24G AND REMOVED THE OLD ONE. TOLERATED THE PROCEDURE WELL.
[2023-01-24] MEDS: IV NS 0.9% 1,000 ML IV PRN (06:57)
--- NOTE | 2023-01-24 07:15 | NUR ---
MS RN OPENING NOTE: RECEIVED PT IN BED. SLEEPING. EASILY AROUSABLE TO VERBAL AND TACTILE STIMULI. AOX1 WITH PERIODS OF CONFUSION. ON RA WITH NO RESP DISTRESS NOTED. VISUAL CHECK AT REGULAR INTERVAL FOR SAFETY AND CONCERN. BED KEPT LOW AND LOCK FOR SAFETY.
[2023-01-24] MEDS: ENSURE ENLIVE 237 ML LIQUID (VANILLA) PO SCH ×2 (07:52→16:18)
[2023-01-24] MEDS: busPIRone 5 MG TABLET PO SCH ×3 (08:44→16:17)
[2023-01-24] MEDS: GABAPENTIN 300 MG CAPSULE PO SCH ×4 (08:44→22:48)
[2023-01-24] MEDS: LORAZEPAM 1 MG TABLET PO SCH (08:44)
[2023-01-24] MEDS: PANTOPRAZOLE 40 MG TABLET.DR PO SCH (08:45)
[2023-01-24] MEDS: FOLIC ACID 1 MG TABLET PO SCH (08:45)
[2023-01-24] MEDS: HALOPERIDOL 5 MG TABLET PO SCH ×4 (08:45→22:48)
[2023-01-24] MEDS: THIAMINE HCL 100 MG TABLET PO SCH (08:45)
[2023-01-24 13:00] VITALS: BP 112/78
--- NOTE | 2023-01-24 17:33 | NUR ---
MS RN NOTE: RECEIVED ORDER TO [facility] GAVE REPORT TO [facility]ICE SCHEDULER [phone].
--- NOTE | 2023-01-24 18:39 | NUR ---
MS RN CLOSING NOTE PATIENT IN BED, AOX2 WITH PERIODS OF CONFUSION. AFEBRILE AND NOT IN ANY FORM OF ACUTE DISTRESS. NO C/O PAIN OR DISCOMFORT. BREATHING EVEN AND NON LABORED. SAFETY MEASURES IN PLACE. KEPT BED IN LOCKED AND IN LOW POSITION. SIDE RAILS UP X2. ADVISED TO USE THE CALL LIGHT WHEN IN NEED OF ASSISTANCE.
--- NOTE | 2023-01-24 19:10 | NUR ---
ELEVATOR DISPATCHER NOTE: PT PICKED UP BY [id number]. PT IS AOX2 WITH PERIODS OF CONFUSION. ABLE TO DENY PAIN OR DISCOMFORT. NO SOB. NO RESP DISTRESS NOTED. D/C INSTRUCTION GIVEN TO PT. VERBALIZE UNDERSTANDING. ALL BELONGINGS ACCOUNTED AND SHEEET SIGNED BY 2 NURSES. IV ACCESS REMOVED. CATHERER TIP INTACT. ID BAND REMOVED. EXIT CARE FOLDER GIVEN. PT LEFT IN STABLE CONDITION. Addendum: 01/24/23 at 1926 by DOM ABEL RN PLEASE DELETE!!
--- NOTE | 2023-01-24 19:55 | NUR ---
MS RN OPENING NOTE RECEIVED PATIENT IN BED, AWAKE, WITH AMBULANCE TEAM AT BED SIDE IN ORDER TO TAKE PT TO NURSING FACILITY. PT IS DISCHARGED TO SNF, BUT PT DECLINED TO GO TO SNF. PT STATES THAT HE WOULD LIKE TO GO HOME INSTEAD. CHARGE NURSE AWARE. PT A/O X3, WITH CONFUSION. AFEBRILE, NO ACUTE DISTRESS. NO C/O PAIN OR DISCOMFORT AT THIS TIME. BREATHING EVEN AND NON LABORED. NO IV ACCESS. SAFETY MEASURES IN PLACE. KEPT BED IN LOCKED AND IN LOW POSITION. SIDE RAILS UP X2. CALL LIGHT WITHIN REACH. WILL CONTINUE TO MONITOR.
[2023-01-24 21:00] VITALS: BP 126/84
[2023-01-24] MEDS: TEMAZEPAM 15 MG CAPSULE PO SCH (21:37)
[2023-01-25 05:00] VITALS: BP 97/65
--- NOTE | 2023-01-25 06:55 | NUR ---
MS RN CLOSING NOTE PATIENT IN BED, ASLEEP BUT EASY TO AROUSE. NO ACUTE DISTRESS NOTED. NO C/O PAIN OR DISCOMFORT THROUGHOUT THE SHIFT. BREATHING EVEN AND NON LABORED. MEDICATED ORDERED. SAFETY MEASURES IN PLACE. KEPT BED IN LOCKED AND IN LOW POSITION. SIDE RAILS UP X2. ADVISED TO USE THE CALL LIGHT WHEN IN NEED OF ASSISTANCE. ALL NURSING NEEDS ATTENDED. ENDORSED TO INCOMING SHIFT FOR CONTINUITY OF CARE.
--- NOTE | 2023-01-25 07:00 | NUR ---
SOFTWARE TOOLS DEVELOPER OPENING NOTE PATIENT AWAKE, ORIENTED X3, CONFUSED AT TIMES, 02 SAT IN ROOM AIR 94%, NO S/S OF RESPIRATORY DISTRESS NOTED. MED-SURG STATUS, DENIES SOB, DENIES PAIN, C/O CONSTIPATION, PRUNE JUICE ADMINISTERED AND PATIENT IS ON COLACE. NO IV ACCESS AT PRESENT. PATIENT IS ON FALL PRECAUTION, SIDE RAILS ELEVATED X4, PATIENT INSTRUCTED TO CALL FOR HELP WHEN HE NEED HELP, DO NOT GET OUT OF BED WITHOUT ASSISTANCE. PATIENT VERBALIZED UNDERSTANDING INSTRUCTIONS. CONT. TO MONITOR.
[2023-01-25] MEDS ORDERED: DOCUSATE SODIUM LIQ 100 MG/10 ML UDC PO SCH (09:00)
[2023-01-25] MEDS: GABAPENTIN 300 MG CAPSULE PO SCH ×2 (09:17→13:46)
[2023-01-25] MEDS: PANTOPRAZOLE 40 MG TABLET.DR PO SCH (09:17)
[2023-01-25] MEDS: THIAMINE HCL 100 MG TABLET PO SCH (09:17)
[2023-01-25] MEDS: busPIRone 5 MG TABLET PO SCH ×2 (09:17→13:45)
[2023-01-25] MEDS: FOLIC ACID 1 MG TABLET PO SCH (09:17)
[2023-01-25] MEDS: HALOPERIDOL 5 MG TABLET PO SCH ×2 (09:18→13:46)
[2023-01-25] MEDS: ENSURE ENLIVE 237 ML LIQUID (VANILLA) PO SCH (09:24)
--- NOTE | 2023-01-25 14:00 | NUR ---
WORKERS COMPENSATION CLAIMS SUPERVISOR DISCHARGE NOTE PATIENT IS GOING TO [facility] VIA AMBULANCE, ACCOMPANIED BY TWO SHOE TRIMMER FROM ([facility]). REPORT GIVEN TO [facility] NURSE(GLADIS RN), PATIENT AWAKE, ALERT AND ORIENTED X3, PATIENT INFORMED REGARDING TRANSFER TO THIS FACILITY. PATIENT AGREE TO GO DIRECTED BY HIS DOCTOR. PATIENT IS ON ROOM AIR, O2 SAT 95%, NO S/S OF RESPIRATORY DISTRESS NOTED. PATIENT DENIES PAIN, DENIES SOB. SKIN NO ISSUES. NO IV ACCESS. B/P 110/70 HR 98-101, RESP. 20 TEMP 97.8. PATIENT IN STABLE CONDITION.
[2023-01-25] MEDS ORDERED: LORAZEPAM 1 MG TABLET PO SCH (17:00)
== END 2023-01-25 13:52 | DRG 421 ==
LOC: ER 07:29 → TELE1 10:19 → MEDSG1 01-15 05:29
PROVIDERS: ADMIT Nurse Practitioner Acute Care
DX: E51.2 Wernicke's encephalopathy (principal); G92.8 Other toxic encephalopathy; D61.818 Other pancytopenia; F10.131 Alcohol abuse with withdrawal delirium; D69.6 Thrombocytopenia, unspecified; J15.9 Unspecified bacterial pneumonia; K70.30 Alcoholic cirrhosis of liver without ascites; E83.39 Other disorders of phosphorus metabolism; E86.0 Dehydration; Z20.822 Contact with and (suspected) exposure to COVID-19; R79.89 Other specified abnormal findings of blood chemistry; E83.42 Hypomagnesemia; R74.01 Elevation of levels of liver transaminase levels; Z91.81 History of falling; Z78.1 Physical restraint status; E87.6 Hypokalemia; L71.9 Rosacea, unspecified; Y90.7 Blood alcohol level of 200-239 mg/100 ml; J32.9 Chronic sinusitis, unspecified
CPT/HCPCS: 36415; 70450-TC; 71045-TC; 76705-TC; 80048-TC; 80053-TC; 80061-TC; 80076-TC; 82140-TC; 82607-TC; 82962-TC; 83690-TC; 83735-TC; 84100-TC; 84425; 84443-TC; 84484-TC; 85025-TC; 87081-TC; 93971-TC; 97110-TC; 97112-TC; 97116-TC; 97530-TC; 97535-TC; A4216; A4223; A4349; C9113; C9803; G0378; G0480; J1956; J2060; J2405; J3475; J3490; J7030; J7050

== ENCOUNTER 2023-03-02 10:41 | Inpatient (IN) | payer OTHER ==
[~2023-03-02] VITALS: Ht 180.3 cm; Wt 62.1 kg
--- NOTE | 2023-03-02 10:50 | NUR ---
BIB RA FROM HOME,SHAKING/TREMORS, STOPPED DRINKING 2 DYS AGO. JUST LAST YR NKA, LIVES BY HIOMSELF IN AN APARTMENT AMBULATORY AOX3, CLAIMS HIS DIZZY AND NAUSEOUS GCS 15. PUT ON BED CHANGED TO GOWN AND ON POX AND MONITOR.
[2023-03-02] MEDS ORDERED: LORAZEPAM INJ 2 MG/ML VIAL IVP PRN (11:00)
[2023-03-02] MEDS ORDERED: LORAZEPAM INJ 2 MG/ML VIAL IV ONE ×2 (11:00→13:30)
[2023-03-02] MEDS ORDERED: Thiamine 100 MG in IV D5W 50 ML IV SCH (11:00)
[2023-03-02] MEDS ORDERED: IV NS 0.9% 1,000 ML IV ONE (11:00)
[2023-03-02] MEDS ORDERED: LORAZEPAM INJ 2 MG/ML VIAL ONE ×2 (11:27→13:28)
[2023-03-02] MEDS ORDERED: Thiamine 100 MG in IV D5W 50 ML IV ONE (11:28)
[2023-03-02] MEDS ORDERED: ONDANSETRON HCL/PF - ER 4 MG/2 ML VIAL IV ONE (11:30)
[2023-03-02] MEDS ORDERED: ONDANSETRON HCL/PF 4 MG/2 ML VIAL ONE (11:35)
[2023-03-02] MEDS ORDERED: CHLO25CA22 PO (14:13)
[2023-03-02] MEDS ORDERED: ONDA4TAB11 PO (14:13)
--- NOTE | 2023-03-02 14:30 | NUR ---
SERVED LUNCH ATE FAIRLY
--- NOTE | 2023-03-02 17:00 | NUR ---
TEST PATIENT TO AMBULATE- KAELA MCGARRY AWARE
--- NOTE | 2023-03-02 19:54 | NUR ---
SERVED DINNER ATE WITH APPETITE
[2023-03-02] MEDS ORDERED: LORAZEPAM 1 MG TABLET ONE (21:06)
[2023-03-02] MEDS ORDERED: LORAZEPAM 1 MG TABLET PO ONE (21:30)
--- NOTE | 2023-03-02 21:47 | NUR ---
ARRANGED TRANSPORT HOME WITH [facility]. ETA [id number].
[2023-03-02] MEDS ORDERED: CHLORDIAZEPOXIDE HCL 25 MG CAPSULE PO ONE (22:30)
[2023-03-02] MEDS ORDERED: CHLORDIAZEPOXIDE HCL 25 MG CAPSULE ONE (22:48)
--- NOTE | 2023-03-03 02:59 | NUR ---
blood drawn, sent to lab
--- NOTE | 2023-03-03 03:00 | NUR ---
MOVE SHEET GIVEN TO ADMITTING
[2023-03-03 03:03] VITALS: O2SAT 97
[2023-03-03 03:15] LABS: BASOPHILS % (AUTO) 0.1 % (0.0-2.0); EOSINOPHILS % (AUTO) 0.2 % (0.0-6.0); HEMATOCRIT 38 % (39-51); HEMOGLOBIN 12.4 g/dL (13.5-17.5); LYMPHOCYTES # (AUTO) 0.7 K/uL (0.8-4.8); LYMPHOCYTES % (AUTO) 2.8 % (20.0-44.0); MEAN CORPUSCULAR HGB CONC 32 g/dl (31.0-36.0); MEAN CORPUSCULAR VOLUME 88 fL (80-96); MONOCYTES # (AUTO) 1.6 K/uL (0.1-1.30); MONOCYTES % (AUTO) 6.4 % (2.0-12.0); NEUTROPHILS # (AUTO) 23.2 K/uL (1.8-8.9); NEUTROPHILS % (AUTO) 90.5 % (43.0-81.0); PLATELET COUNT (AUTO) 239 K/uL (150-450); RED BLOOD CELL COUNT(AUTO) 4.38 MIL/uL (4.5-6.0); WHITE BLOOD COUNT (AUTO) 25.6 K/uL (4.3-11.0)
[2023-03-03 03:34] LABS: ALANINE AMINOTRANSFERASE 138 U/L (12-78); ALBUMIN 2.4 g/dL (3.4-5.0); ALCOHOL, BLOOD < 3 mg/dL (0-10); ALKALINE PHOSPHATASE 138 U/L (46-116); ASPARTATE AMINOTRANSFERASE 315 U/L (15-37); BILIRUBIN,DIRECT 0.7 mg/dL (0.0-0.2); BILIRUBIN,TOTAL 1.3 mg/dL (0.2-1.0); CARBON DIOXIDE 27 mmol/L (21-32); CHLORIDE 98 mmol/L (98-107); GLUCOSE 109 mg/dL (74-106); POTASSIUM 4.8 mmol/L (3.5-5.1); SODIUM SERUM 135 mmol/L (136-145); TOTAL PROTEIN, SERUM 6.7 g/dL (6.4-8.2); UREA NITROGEN, BLOOD 23 mg/dL (7-18)
--- NOTE | 2023-03-03 04:53 | NUR ---
urine collected, sent to lab
[2023-03-03] MEDS ORDERED: LORAZEPAM INJ 2 MG/ML VIAL ONE (04:56)
[2023-03-03] MEDS ORDERED: ENOXAPARIN SODIUM 40 MG/0.4 ML DISP.SYRIN SQ SCH (05:30)
[2023-03-03] MEDS ORDERED: ACETAMINOPHEN 325 MG TABLET PO PRN (05:30)
[2023-03-03] MEDS ORDERED: MORPHINE SULFATE INJ 2 MG/ML DISP.SYRIN IV PRN (05:30)
--- NOTE | 2023-03-03 05:44 | NUR ---
REPORT GIVEN TO POONAM JOE
--- NOTE | 2023-03-03 06:00 | NUR ---
CYBER TRANSPORT SYSTEMS SPECIALIST ADMITTING NOTES ADMITTED THIS 62 YEAR OLD MALE PATIENT FROM ER VIA [facility], ACCOMPANIED BY ER NURSE YVONNE. PATIENT ABLE TO WALK FROM [place] TO BED. PATIENT IS A/O X3-4, ABLE TO MAKE NEEDS KNOWN. ON ROOM AIR, TOLERATING WELL, WITH EVEN AND NONLABORED BREATHING. PATIENT WAS ORIENTED TO ROOM AND HOW TO USE THE CALL LIGHT. NO SOB , WITH MILD ANXIETY BECAUSE OF ALCOHOL WITHDRAWAL SYMPTOMS. ALL BELONGINGS ACCOUNTED FOR, BELONGINGS SHEET SIGNED. IV ACCESS ON RAC G#20, PATENT, FLUSHING WELL AND SALINE LOCKED. VS TAKEN FOLLOWS: TEMP 98, BP 123/75, HR: 96, SPO2 99%, RR 18. SKIN ASSESSMENT DONE, SKIN REDNESS/DRYNESS NOTED ON BOTH THIGHS, LEFT AND RIGHT BUTTOCKS. PHOTOS TAKEN AND PLACED IN CHART. LUNGS WITH FINE CRACKLES UPON AUSCULTATION. BOWEL SOUNDS PRESENT. PATIENT IS ANXIOUS ABOUT CURRENT CONDITION AND IS ASKING FOR ATIVAN, WHICH WAS ALREADY GIVEN AT ER AROUND 04:56AM. SAFETY PRECAUTIONS INITIATED: BED IN LOWEST, LOCKED POSITION, RAILS UPX3, CALL LIGHT WITHIN REACH. WILL CONTINUE TO MONITOR.. Addendum: 03/03/23 at 0821 by TATYANA JOSÉ RN ATTACHED TO CONTRACTOR GENER[employer] BUILDING WITH SR 98.
--- NOTE | 2023-03-03 06:13 | NUR ---
pt transferred to 312-2 via ACLS protocol. VS WNL.
[2023-03-03] MEDS ORDERED: VANCOMYCIN 1 GM in IV D5W 250ml IV ONE (07:00)
--- NOTE | 2023-03-03 07:40 | NUR ---
TITLE INSPECTOR CLOSING NOTES PATIENT AWAKE IN BED. A/O X3-4, ABLE TO MAKE NEEDS KNOWN. ON ROOM AIR, TOLERATING WELL, WITH EVEN AND NONLABORED BREATHING. IV ACCESS RAC G#20, INTACT, PATENT, SL. ON POLICE PILOT WITH CURRENT READING SR 97. PATIENT MADE COMFORTABLE, SAFETY PRECAUTIONS INITIATED: BED IN LOWEST, LOCKED POSITION, RAILS UPX3, CALL LIGHT WITHIN REACH. WILL ENDORSE TO AM SHIFT FOR TERRI.
--- NOTE | 2023-03-03 07:50 | NUR ---
RADIOLOGIC TECHNOLOGIST MAMMOGRAM OPENING NOTE RECEIVED PATIENT AWAKE IN BED, ALERT/ORIENTED X 3-4, PT ABLE TO MAKE NEEDS KNOWN. PATIENT STABLE ON RA, NO S/S OF DISTRESS OR SOB NOTED, BREATHING EVEN AND UNLABORED. NO COMPLAINT OF PAIN AT THIS TIME. PATIENT ON TELE MONITOR READING SINUS RHYTHM, HR: 75. IV ACCESS ON RAC #20G INTACT, PATENT AND INFUSING WELL. SAFETY MEASURES IN PLACE: CALL LIGHT WITHIN REACH, SIDE RAILS UP X 2, BED LOCKED IN LOWEST POSITION, BED ALARM ON. WILL CONTINUE TO MONITOR PATIENT.
[2023-03-03 07:53] LABS: BILIRUBIN,URINE NEGATIVE (NEGATIVE); COLOR,URINE DARK YELLOW (YELLOW); LEUKOCYTE ESTERASE ,URINE 1+ (NEGATIVE); NITRITE, URINE NEGATIVE (NEGATIVE); PROTEIN,URINE TRACE mg/dl (NEGATIVE); UGLUCOSE NEGATIVE (NEGATIVE); UROBILINOGEN,URINE 0.2 EU/dL (0.2)
[2023-03-03] MEDS ORDERED: VANCOMYCIN 500 MG in IV D5W 100 ML IV ONE (08:00)
[2023-03-03] MEDS: IV NS 0.9% 1,000 ML IV SCH ×2 (08:18→18:05)
[2023-03-03 08:30] LABS: BACTERIA,URINE Few /HPF (None Seen); RBC,URINE 0-2 /HPF (0-2); SQUAMOUS EPITHELIAL CELL,UR Moderate /HPF (None Seen)
[2023-03-03] MEDS: ENOXAPARIN SODIUM 40 MG/0.4 ML DISP.SYRIN SQ SCH (08:36)
[2023-03-03] MEDS: CHLORDIAZEPOXIDE HCL 25 MG CAPSULE PO SCH ×3 (08:38→16:06)
[2023-03-03] MEDS: ONDANSETRON HCL/PF 4 MG/2 ML VIAL IVP PRN ×2 (08:39→15:45)
--- NOTE | 2023-03-03 08:40 | NUR ---
RN NOTE PATIENT COMPLAINED OF FEELING NAUSEOUS. ASKING FOR A MEDICATION. PRN ZOFRAN GIVEN. WILL CONTINUE TO MONITOR PATIENT.
[2023-03-03 08:43] VITALS: BP 120/93; TEMP 98.5; O2SAT 97
[2023-03-03] MEDS: LORAZEPAM INJ 2 MG/ML VIAL IV PRN ×2 (09:49→16:45)
--- NOTE | 2023-03-03 09:49 | NUR ---
RN NOTE PATIENT IS VERY AGITATED. PRN LORAZEPAM 2MG GIVEN. WILL CONTINUE TO MONITOR.
[2023-03-03] MEDS: CEFEPIME 2 GM in IV D5W 100 ML IV SCH ×2 (09:59→16:06)
--- NOTE | 2023-03-03 12:00 | NUR ---
RN NOTE DC TELEMETRY. HANDED TELE DEVICE TO ASAD.
[2023-03-03] MEDS: THIAMINE HCL 100 MG TABLET PO SCH (12:08)
--- NOTE | 2023-03-03 15:46 | NUR ---
RN NOTE PATIENT WAS NAUSEOUS. ASKED FOR MEDICATION. PRN ONDANSETRON GIVEN. WILL CONTINUE TO MONITOR PATIENT.
[2023-03-03 16:54] VITALS: BP 5/69; TEMP 98.4; O2SAT 96
--- NOTE | 2023-03-03 18:42 | NUR ---
RN CLOSING NOTE PATIENT AWAKE IN BED, ALERT/ORIENTED X 3 WITH EPISODES OF CONFUSION, PT ABLE TO MAKE NEEDS KNOWN. PATIENT STABLE ON RA, NO S/S OF DISTRESS OR SOB NOTED, BREATHING EVEN AND UNLABORED. NO COMPLAINT OF PAIN AT THIS TIME. IV ACCESS ON RAC #20G INTACT, PATENT AND INFUSING WELL. ALL DUE MEDS GIVEN. PT NEEDS MET. SAFETY MEASURES IN PLACE: CALL LIGHT WITHIN REACH, SIDE RAILS UP X 2, BED LOCKED IN LOWEST POSITION, BED ALARM ON. WILL ENDORSE TO THE MEDICAL TECHNOLOGIST GENERALIST NURSE FOR TERRI.
--- NOTE | 2023-03-03 19:10 | NUR ---
RN opening notes Received Pt from am nurse. Pt is talking in bed comfortably with roommates. Pt is alert and orientedX3 with episode of confusion. On room air. No SOB. No S/s of distress. IV sites at RAC# 20 is clean, intact and infusing well NS@ 75 ml/hr. Safety precautions is maintained. Bed at low position, brakes locked, side rails upx3, bed alarm is on and call light is within reach. Will continue to monitor.
[2023-03-03] MEDS: VANCOMYCIN 1.25 GM in IV D5W 250 ML IV SCH (19:24)
[2023-03-03 20:00] VITALS: BP 123/78; TEMP 97.5; O2SAT 96
--- NOTE | 2023-03-03 20:20 | NUR ---
RN notes Received a phone call from Mar Gamez for blood cx resulted in gram + cocci.
--- NOTE | 2023-03-03 20:40 | NUR ---
RN notes ID MD Kylah at the bedside. MD is aware and informed regarding blood cx gram + cocci.
[2023-03-03] MEDS: AZITHROMYCIN 250 MG TABLET PO SCH (21:20)
[2023-03-04] MEDS: CEFEPIME 2 GM in IV D5W 100 ML IV SCH ×3 (00:49→17:05)
[2023-03-04] MEDS: LORAZEPAM INJ 2 MG/ML VIAL IV PRN ×3 (00:56→21:39)
--- NOTE | 2023-03-04 02:30 | NUR ---
RN notes Phelebotomist Kaya and other forder operator unable to get blood drawn for blood cx ordered by . Two Phelebotomist unsuccessful. Kaya informed will call someone to help.
--- NOTE | 2023-03-04 06:30 | NUR ---
RN closing notes Pt is resting in bed comfortably. Pt is alert and orientedX3 with episode of confusion. On room air. No SOB. No S/s of distress. IV sites at RAC# 20 is clean, intact and infusing well NS@ 75 ml/hr. Routine meds were given as ordered. Kept Pt clean, dry and comfortable. Safety precautions is maintained. Bed at low position, brakes locked, side rails upx3, bed alarm is on and call light is within reach. Will endorse to am nurse for TERRI.
[2023-03-04 07:03] LABS: BASOPHILS % (AUTO) 0.1 % (0.0-2.0); EOSINOPHILS % (AUTO) 1.9 % (0.0-6.0); HEMATOCRIT 39 % (39-51); HEMOGLOBIN 12.6 g/dL (13.5-17.5); LYMPHOCYTES # (AUTO) 0.6 K/uL (0.8-4.8); LYMPHOCYTES % (AUTO) 7.4 % (20.0-44.0); MEAN CORPUSCULAR HGB CONC 33 g/dl (31.0-36.0); MEAN CORPUSCULAR VOLUME 90 fL (80-96); MONOCYTES # (AUTO) 1.2 K/uL (0.1-1.30); MONOCYTES % (AUTO) 13.4 % (2.0-12.0); NEUTROPHILS # (AUTO) 6.6 K/uL (1.8-8.9); NEUTROPHILS % (AUTO) 77.2 % (43.0-81.0); PLATELET COUNT (AUTO) 194 K/uL (150-450); RED BLOOD CELL COUNT(AUTO) 4.31 MIL/uL (4.5-6.0); WHITE BLOOD COUNT (AUTO) 8.6 K/uL (4.3-11.0)
[2023-03-04] MEDS ORDERED: IV NS 0.9% 1,000 ML IV PRN (07:29)
[2023-03-04 07:50] LABS: ALBUMIN 2.4 g/dL (3.4-5.0); BILIRUBIN,TOTAL 1.3 mg/dL (0.2-1.0); CALCIUM, SERUM 8.9 mg/dL (8.5-10.1); CREATININE 0.9 mg/dL (0.6-1.3); PHOSPHORUS 3.5 mg/dL (2.5-4.9); POTASSIUM 4.9 mmol/L (3.5-5.1)
--- NOTE | 2023-03-04 08:31 | NUR ---
CRITICAL LAB CRITICAL LAB REPORT BY MAGGY WHITE 58.20, DR. CURTIS INFORMED. NO NEW ORDERS AT THIS TIME.
[2023-03-04] MEDS: VANCOMYCIN 1.25 GM in IV D5W 250 ML IV SCH ×2 (08:44→20:12)
[2023-03-04] MEDS: THIAMINE HCL 100 MG TABLET PO SCH (08:47)
[2023-03-04] MEDS: CHLORDIAZEPOXIDE HCL 25 MG CAPSULE PO SCH ×3 (08:47→17:02)
--- NOTE | 2023-03-04 09:44 | NUR ---
WOUND CARE CONSULT: PT PRESENTS WITH RASH/PEELING CRUSTED AREAS TO BUTTOCKS AND POSTERIOR THIGHS, PRESENT ON ADMISSION. RECOMMENDATIONS MADE FOR SKIN CARE AND PROTECTION. DISCUSSED WITH NURSING STAFF. PT IS CONTINENT AND INDEPENDENT WITH BED MOBILITY AT THIS TIME. MD IN AGREEMENT WITH PLAN OF CARE.
[2023-03-04] MEDS: ENOXAPARIN SODIUM 40 MG/0.4 ML DISP.SYRIN SQ SCH (09:58)
--- NOTE | 2023-03-04 11:12 | NUR ---
MEDICATION NOTE PATIENT IV 0900 ANTIBIOTIC IS RUNNING LATE. IV VANCO STILL RUNNING. WHEN PT MOVES HIS ARM, IT CAUSES RESTRICTION ON IV, INTACT AND PATENT, FLUSHING WELL. LIMITATION OCCURS WHEN PATIENT MOVES ARM. CHARGE NURSE AND PHARMACY AWARE. POSSIBLE CONSIDERATION FOR CHANGE OF IV SITE. PATIENT IS A HARD STICK.
[2023-03-04] MEDS: ENSURE ENLIVE 237 ML LIQUID (VANILLA) PO SCH ×2 (12:53→17:03)
[2023-03-04] MEDS ORDERED: SERTRALINE HCL 25 MG TABLET PO SCH (13:00)
--- NOTE | 2023-03-04 15:44 | NUR ---
RN NOTE PATIENT WAS WITH PAT RICHARDSON LVN, PATIENT FELT ANXIOUS AND ASKED FOR ATIVAN. ATIVAN 2MG IV WAS ADMINISTERED AT 1535. WILL CONTINUE TO MONITOR.
[2023-03-04 17:00] VITALS: BP 125/83; TEMP 91.6; O2SAT 96
[2023-03-04] MEDS: CLOTRIMAZOLE/BETAMETASONE DIPROPIONATE 15 GM TUBE TP SCH (17:03)
--- NOTE | 2023-03-04 18:43 | NUR ---
PATIENT IN BED RESTING, AWAKE, A/Ox3 CONFUSED AND FORGET AT TIMES.ON ROOM AIR WITH NO S/S OF SOB OR DISTRESS. DENIES ANY PAIN AT THIS TIME. COMPLAINT AND COOPERATIVE TO CARE. MEDICATION ADMINISTERED ORDER/ PER PT STATUS. ALCOHOL WITHDRAWS S/S BEING MONITORED, NO CHANGES THROUGHOUT SHIFT. PATIENT STATED, ANXIETY AND TREMORS HAVE DECREASED WHEN ASKED. IV ACCESS ON RAC D/C AND NEW IV ACCESS ON R HAND G20, INTACT AND PATIENT, FLUSHING WELL. PER D/C CONTINUES FLUIDS. FALL AND SAFETY PRECAUTION IN PLACE: BED LOCKED AND AT THE LOWEST POSITION, SRx2, CALL LIGHT WITHIN REACH. Addendum: 03/04/23 at 1846 by PAT QUINTEROS LVN *CLOSING NOTE
--- NOTE | 2023-03-04 19:58 | NUR ---
MS RN OPENING NOTE PATIENT SLEEPING IN BED, EASILY AWAKENED, ALERT/ORIENTED X 3, FORGETFUL. PATINET STABLE ON RA, NO S/S OF DISTRESS OR SOB NOTED, BREATHING EVEN AND UNLABORED. IV ACCESS ON RIGHT HAND #20G INTACT AND SALINE LOCKED. SAFETY MEASURES IN PLACE: CALL LIGHT WITHIN REACH, SIDE RAILS UP X 2, BED LOCKED IN LOWEST POSITION, HOB ELEVATED, BED ALARM ON. WILL CONTINUE TO MONITOR PATIENT
[2023-03-04 20:44] VITALS: BP 110/80; TEMP 98; O2SAT 96
[2023-03-04] MEDS: AZITHROMYCIN 250 MG TABLET PO SCH (21:21)
[2023-03-05] MEDS: CEFEPIME 2 GM in IV D5W 100 ML IV SCH ×3 (01:26→16:27)
[2023-03-05] MEDS: LORAZEPAM INJ 2 MG/ML VIAL IV PRN ×4 (03:43→22:44)
--- NOTE | 2023-03-05 06:32 | NUR ---
MS CLOSING NOTE PATIENT SLEEPING IN BED, EASILY AWAKENED, ALERT/ORIENTED X 2, PT VERY FORGETFUL. PATIENT STABLE ON RA, NO S/S OF DISTRESS OR SOB NOTED, BREATHING EVEN AND UNLABORED. IV ACCESS ON RIGHT HAND #20G INTACT AND SALINE LOCKED. NO SIGNIFICANT CHANGES THIS SHIFT, PT SLEPT WELL THROUGH THE NIGHT, PT NEEDS MET, MEDICATIONS GIVEN ORDERED. SAFETY MEASURES IN PLACE: CALL LIGHT WITHIN REACH, SIDE RAILS UP X 2, BED LOCKED IN LOWEST POSITION, HOB ELEVATED, BED ALARM ON. WILL ENDORSE TO DAYSHIFT RN FOR CONTINUITY OF CARE
[2023-03-05 07:13] LABS: BASOPHILS % (AUTO) 0.1 % (0.0-2.0); HEMATOCRIT 41 % (39-51); HEMOGLOBIN 13.2 g/dL (13.5-17.5); LYMPHOCYTES # (AUTO) 0.6 K/uL (0.8-4.8); LYMPHOCYTES % (AUTO) 10.9 % (20.0-44.0); MEAN CORPUSCULAR HGB CONC 32 g/dl (31.0-36.0); MEAN CORPUSCULAR VOLUME 89 fL (80-96); MONOCYTES # (AUTO) 0.7 K/uL (0.1-1.30); PLATELET COUNT (AUTO) 211 K/uL (150-450); RED BLOOD CELL COUNT(AUTO) 4.57 MIL/uL (4.5-6.0); WHITE BLOOD COUNT (AUTO) 5.3 K/uL (4.3-11.0)
[2023-03-05 07:24] LABS: CALCIUM, SERUM 9.5 mg/dL (8.5-10.1); CREATININE 0.9 mg/dL (0.6-1.3)
--- NOTE | 2023-03-05 07:35 | NUR ---
OPENING NOTES PATIENT AWAKE IN BED, A/O X2, CONFUSED AND FORGETFUL. NO S/S OF PAIN NOTED AT THIS TIME. ON ROOM AIR, BREATHING EVEN AND UNLABORED, NO DISTRESS OR SOB NOTED. IV ACCESS RIGHT HAND#20G SL, INTACT, PATENT AND FLUSHING WELL. FALL AND SAFETY MEASURES IN PLACE AND MAINTAINED AT ALL TIMES, BED ALARM ON, BED IN LOW AND LOCK POSITION, CALL LIGHT AND TABLE WITHIN EASY REACH, SIDE RAILS UP X2. WILL CONTINUE TO MONITOR THE PATIENT.
[2023-03-05] MEDS: VANCOMYCIN 1 GM in IV D5W 250 ML IV SCH ×2 (08:07→19:46)
[2023-03-05] MEDS: ENSURE ENLIVE 237 ML LIQUID (VANILLA) PO SCH ×3 (08:09→16:27)
[2023-03-05 08:30] VITALS: BP 118/95; TEMP 97.8; O2SAT 96
[2023-03-05] MEDS: THIAMINE HCL 100 MG TABLET PO SCH (09:58)
[2023-03-05] MEDS: CLOTRIMAZOLE/BETAMETASONE DIPROPIONATE 15 GM TUBE TP SCH ×2 (09:59→16:29)
[2023-03-05] MEDS: ENOXAPARIN SODIUM 40 MG/0.4 ML DISP.SYRIN SQ SCH (10:09)
--- NOTE | 2023-03-05 10:19 | NUR ---
RN NOTE PATIENT NOTED TO HAVE S/S OF ALCOHOL WITHDRAWAL MANIFESTED BY HAND TREMORS, INCREASED LEVEL OF ANXIETY AND IRRITABILITY. ATIVAN 2 MG IV GIVEN ORDERED. WILL CONTINUE TO MONITOR THE PATIENT
[2023-03-05] MEDS: SERTRALINE HCL 25 MG TABLET PO SCH ×2 (13:03→17:14)
[2023-03-05 16:00] VITALS: BP 134/86; TEMP 97.8; O2SAT 96
--- NOTE | 2023-03-05 16:17 | NUR ---
RN NOTES: MED WASTE WASTED ATIVAN 1 MG, WITNESSED BY RN ANGELC
--- NOTE | 2023-03-05 16:17 | NUR ---
MS RN NOTES I WITNESSED WASTAGE OF 1MG(0.5ML) OUT OF 2MG(1ML) OF ATIVAN IN RX DESTROYER.
[2023-03-05] MEDS: CHLORDIAZEPOXIDE HCL 25 MG CAPSULE PO SCH (17:14)
--- NOTE | 2023-03-05 19:41 | NUR ---
CLOSING NOTES PATIENT AWAKE IN BED, A/O X2, CONFUSED AND FORGETFUL. NO S/S OF PAIN NOTED AT THIS TIME. ON ROOM AIR, BREATHING EVEN AND UNLABORED, NO DISTRESS OR SOB NOTED. IV ACCESS RIGHT HAND#20G SL, INTACT, PATENT AND FLUSHING WELL. TURN TO SIDES Q2H PER PROTOCOL. SKIN CARE IMPLEMENTED. FALL AND SAFETY MEASURES IN PLACE AND MAINTAINED AT ALL TIMES, BED ALARM ON, BED IN LOW AND LOCK POSITION, CALL LIGHT AND TABLE WITHIN EASY REACH, SIDE RAILS UP X2. WILL ENDORSE TO LACE SEWER NURSE
--- NOTE | 2023-03-05 19:42 | NUR ---
RN OPENING NOTES RECEIVED PT AWAKE IN BED. A/O X2, ORIENTED TO PERSON, PLACE. NO S/S OF PAIN NOTED AT THIS TIME. ON ROOM AIR, BREATHING EVEN AND UNLABORED, NO DISTRESS OR SOB NOTED. IV ACCESS RIGHT HAND#20G SL, INTACT, PATENT AND FLUSHING WELL, RUNNING NS @ 75 ML/HR. FALL AND SAFETY MEASURES IN PLACE: BED LOCKED AND IN LOW POSITION, SIDE RAILS UP X3, BED ALARM ON, CALL LIGHT AND TABLE WITHIN EASY REACH. WILL CONTINUE TO MONITOR AND ASSIST.
[2023-03-05 20:00] VITALS: BP 118/83; TEMP 98.1; O2SAT 96
[2023-03-05] MEDS: AZITHROMYCIN 250 MG TABLET PO SCH (21:01)
--- NOTE | 2023-03-05 22:55 | NUR ---
RN NOTE: WASTED ATIVAN 1MG/0.5ML DUE TO PARTIAL DOSE. WITNESSED BY JUAN JOSÉ LEVIN.
--- NOTE | 2023-03-05 22:56 | NUR ---
MS HOOP DRIVING MACHINE OPERATOR WASTING WITNESS NOTE WITNESSED RN MARSHALL WASTED PARTIAL DOSE OF ATIVAN 1MG AND DOCUMENTED.
[2023-03-06] MEDS: CEFEPIME 2 GM in IV D5W 100 ML IV SCH ×3 (00:36→17:22)
--- NOTE | 2023-03-06 04:15 | NUR ---
RN NOTE: PT CALLED, SAYS HE WANTS TO MAKE SURE HIS R HAND #20G IV LINE IS WORKING WELL. FLUSHED LINE, PATENT AND INTACT, MINOR REDNESS NOTED, PT VERBALIZED MINOR DISCOMFORT ON INITIAL FLUSH. TRIED TO REINSERT IV ACCESS, UNABLE TO INSERT DUE TO PT BEING HARD STICK. PT REFUSED TO KEEP TRYING, STATED LONG R HAND LINE IS WORKING, ITS OKAY. TOLERATED RESUMPTION OF IV FLUIDS.
[2023-03-06] MEDS: LORAZEPAM INJ 2 MG/ML VIAL IV PRN ×2 (04:24→20:26)
--- NOTE | 2023-03-06 04:33 | NUR ---
RN NOTE: WASTED ATIVAN 1MG/0.5ML DUE TO PARTIAL DOSE. WITNESSED BY FIGUEROA LEVIN.
--- NOTE | 2023-03-06 06:35 | NUR ---
RN CLOSING NOTES PT AWAKE IN BED, TRYING TO GET UP, STATES HE WANTS TO TAKE A DRIVE, REORIENTED. A/O X2, MULTIPLE EPISODES OF CONFUSION/FORGETFULNESS. NO S/S OF PAIN NOTED AT THIS TIME. STABLE ON ROOM AIR, BREATHING EVEN AND UNLABORED, NO DISTRESS OR SOB NOTED. IV ACCESS RIGHT HAND#20G SL, INTACT, PATENT AND FLUSHING WELL, RUNNING NS @ 75 ML/HR. ALL CARE PROVIDED AND MEDS TOLERATED WELL. FALL AND SAFETY MEASURES MAINTAINED: BED LOCKED AND IN LOW POSITION, SIDE RAILS UP X3, BED ALARM ON, CALL LIGHT AND TABLE WITHIN EASY REACH. WILL ENDORSE TERRI TO DAY SHIFT NURSE.
[2023-03-06 07:10] LABS: BASOPHILS % (AUTO) 0.2 % (0.0-2.0); EOSINOPHILS % (AUTO) 1.8 % (0.0-6.0); HEMATOCRIT 36 % (39-51); HEMOGLOBIN 11.9 g/dL (13.5-17.5); LYMPHOCYTES # (AUTO) 0.6 K/uL (0.8-4.8); LYMPHOCYTES % (AUTO) 10.3 % (20.0-44.0); MEAN CORPUSCULAR HGB CONC 33 g/dl (31.0-36.0); MEAN CORPUSCULAR VOLUME 88 fL (80-96); MONOCYTES # (AUTO) 0.9 K/uL (0.1-1.30); MONOCYTES % (AUTO) 15.9 % (2.0-12.0); NEUTROPHILS # (AUTO) 4.2 K/uL (1.8-8.9); NEUTROPHILS % (AUTO) 71.8 % (43.0-81.0); PLATELET COUNT (AUTO) 230 K/uL (150-450); RED BLOOD CELL COUNT(AUTO) 4.09 MIL/uL (4.5-6.0); WHITE BLOOD COUNT (AUTO) 5.8 K/uL (4.3-11.0)
[2023-03-06 07:37] LABS: CALCIUM, SERUM 8.9 mg/dL (8.5-10.1); CREATININE 0.7 mg/dL (0.6-1.3); MAGNESIUM 1.7 mg/dL (1.8-2.4); PHOSPHORUS 3.3 mg/dL (2.5-4.9); POTASSIUM 3.7 mmol/L (3.5-5.1)
[2023-03-06] MEDS: VANCOMYCIN 1 GM in IV D5W 250 ML IV SCH (08:00)
--- NOTE | 2023-03-06 08:29 | NUR ---
RN NOTE CALLED PHARMACY, SPOKE TO PORTIA, INFORMED OF VANCO TROUGH LEVEL 26. PHARMACIST INSTRUCTED TO HOLD THE DOSE SCHEDULED FOR 0800. WILL CONTINUE TO MONITOR THE PATIENT
[2023-03-06 08:30] VITALS: BP 134/88; TEMP 97.9; O2SAT 96
[2023-03-06] MEDS: THIAMINE HCL 100 MG TABLET PO SCH (09:32)
[2023-03-06] MEDS: CHLORDIAZEPOXIDE HCL 25 MG CAPSULE PO SCH ×2 (09:32→17:20)
[2023-03-06] MEDS: ENOXAPARIN SODIUM 40 MG/0.4 ML DISP.SYRIN SQ SCH (09:32)
[2023-03-06] MEDS: CLOTRIMAZOLE/BETAMETASONE DIPROPIONATE 15 GM TUBE TP SCH ×2 (09:33→17:21)
[2023-03-06] MEDS: ENSURE ENLIVE 237 ML LIQUID (VANILLA) PO SCH ×3 (09:33→17:21)
[2023-03-06] MEDS ORDERED: MAGNESIUM OXIDE 400 MG TABLET PO ONE (10:00)
[2023-03-06] MEDS: SERTRALINE HCL 25 MG TABLET PO SCH ×2 (13:38→17:20)
[2023-03-06 16:00] VITALS: BP 155/91; TEMP 97.9; O2SAT 96
--- NOTE | 2023-03-06 19:00 | NUR ---
CLOSING NOTES PATIENT AWAKE IN BED, A/O X2, CONFUSED AND FORGETFUL. NO S/S OF PAIN NOTED AT THIS TIME. ON ROOM AIR, BREATHING EVEN AND UNLABORED, NO DISTRESS OR SOB NOTED. IV ACCESS RIGHT HAND#20G SL. PATIENT IS AMBULATORY WITH FWW WITH ASSISTANCE. SKIN CARE IMPLEMENTED. FALL AND SAFETY MEASURES IN PLACE AND MAINTAINED AT ALL TIMES, BED ALARM ON, BED IN LOW AND LOCK POSITION, CALL LIGHT AND TABLE WITHIN EASY REACH, SIDE RAILS UP X2. WILL ENDORSE TO LEAD SHIPPER NURSE
--- NOTE | 2023-03-06 19:56 | NUR ---
RN OPENING NOTES PATIENT AWAKE IN BED, A/O X2, CONFUSED AND FORGETFUL. NO S/S OF PAIN NOTED AT THIS TIME. ON ROOM AIR, BREATHING EVEN AND UNLABORED, NO DISTRESS OR SOB NOTED. IV ACCESS RIGHT HAND#20G WITH NS AT 75/HOUR, INTACT, PATENT AND INFUSING WELL. FALL AND SAFETY MEASURES IN PLACE AND MAINTAINED AT ALL TIMES, BED ALARM ON, BED IN LOW AND LOCK POSITION, CALL LIGHT AND TABLE WITHIN EASY REACH, SIDE RAILS UP X2. WILL CONTINUE TO MONITOR THE PATIENT.
[2023-03-06 20:00] VITALS: BP 118/83; TEMP 98.1; O2SAT 96
[2023-03-06] MEDS: AZITHROMYCIN 250 MG TABLET PO SCH (20:26)
--- NOTE | 2023-03-06 20:40 | NUR ---
RN NOTES PATIENT COMPLAINED OF TREMOR AND PATIENT WAS GIVEN `1MG OF ATIVAN ORDERED BY . WASTED `1 MG OF ATIVAN WITNESSED BY RN KIM IN PHARMACEUTICAL WASTE.
--- NOTE | 2023-03-06 20:41 | NUR ---
RN NOTE WITNESSED WASTE OF ATIVAN 1 MG IN PHARMACEUTICAL WASTE BY TESSY LEVIN.
[2023-03-07] MEDS: CEFEPIME 2 GM in IV D5W 100 ML IV SCH ×2 (00:38→10:04)
[2023-03-07] MEDS: LORAZEPAM INJ 2 MG/ML VIAL IV PRN (02:38)
--- NOTE | 2023-03-07 02:48 | NUR ---
RN NOTES PATIENT COMPLAINED OF TREMORS. ADMINISTERED ATIVAN 1MG ORDERED.WASTED 1 MG OF ATIVAN TO PHARMACEUTICAL WASTE WITNESSED BY POONAM ALVAREZ.
--- NOTE | 2023-03-07 02:51 | NUR ---
RN NOTE WITNESSED WASTE OF ATIVAN 1 MG IN PHARMACEUTICAL WASTE BY TESSY LEVIN.
--- NOTE | 2023-03-07 06:39 | NUR ---
MS RN CLOSING NOTE PT AWAKE IN BED. A/O X2, EPISODES OF CONFUSION AND FORGETFULNESS. PT STABLE ON ROOM AIR, TOLERATING WELL. NO SOB OR S/S OF RESPIRATORY DISTRESS. BREATHING EVEN AND UNLABORED. IV ACCESS R HAND 20G RUNNING NS @ 75/HOUR, INTACT, PATENT, AND INFUSING WELL. ALL DUE MEDS GIVEN ORDERED. KEPT CLEAN AND DRY. SAFETY PRECAUTIONS IN PLACE AT ALL TIMES. BED IN LOWEST LOCKED POSITION, HOB ELEVATED, SIDE RAILS UP X2, AND CALL LIGHT AND TABLE WITHIN REACH. ALL NEEDS MET AT THIS TIME AND WILL ENDORSE TO ONCOMING NURSE FOR TERRI.
[2023-03-07 07:30] VITALS: BP 135/81; TEMP 98.3; O2SAT 100
[2023-03-07 07:39] LABS: BASOPHILS % (AUTO) 0.2 % (0.0-2.0); EOSINOPHILS % (AUTO) 2.5 % (0.0-6.0); HEMATOCRIT 39 % (39-51); HEMOGLOBIN 12.8 g/dL (13.5-17.5); LYMPHOCYTES # (AUTO) 0.6 K/uL (0.8-4.8); LYMPHOCYTES % (AUTO) 9.9 % (20.0-44.0); MEAN CORPUSCULAR HGB CONC 33 g/dl (31.0-36.0); MEAN CORPUSCULAR VOLUME 90 fL (80-96); MONOCYTES % (AUTO) 15.5 % (2.0-12.0); NEUTROPHILS # (AUTO) 4.7 K/uL (1.8-8.9); NEUTROPHILS % (AUTO) 71.9 % (43.0-81.0); PLATELET COUNT (AUTO) 270 K/uL (150-450); RED BLOOD CELL COUNT(AUTO) 4.29 MIL/uL (4.5-6.0); WHITE BLOOD COUNT (AUTO) 6.6 K/uL (4.3-11.0)
[2023-03-07 07:55] LABS: CALCIUM, SERUM 9.2 mg/dL (8.5-10.1); CREATININE 0.7 mg/dL (0.6-1.3); POTASSIUM 3.6 mmol/L (3.5-5.1)
--- NOTE | 2023-03-07 07:55 | NUR ---
MS RN OPENING NOTE (DAY SHIFT) PATIENT AWAKE IN BED, A/O X 3 -4. NO S/S OF PAIN NOTED AT THIS TIME. ON ROOM AIR, BREATHING EVEN AND UNLABORED, NO DISTRESS NOR SOB NOTED. IV ACCESS RIGHT HAND#20G SALINE LOCKED. FALL AND SAFETY MEASURES IN PLACE AND MAINTAINED AT ALL TIMES, BED ALARM ON, BED IN LOW AND LOCK POSITION, CALL LIGHT AND TABLE WITHIN EASY REACH, SIDE RAILS UP X 2. ABLE TO GET UP OOB AND WALK TO BATH ROOM USING FRONT WHEEL WALKER. GAIT IS SLOW AND STEADY. NO VISIBLE SIGNS OF DELIRIUM TREMENS AT THE MOMENT. WILL CONTINUE TO MONITOR THE PATIENT AND CARE FOR PATIENT PER HOSPITALIST'S POC.
[2023-03-07] MEDS ORDERED: VANCOMYCIN 1 GM in IV D5W 250ml IV SCH (08:00)
[2023-03-07] MEDS: ENSURE ENLIVE 237 ML LIQUID (VANILLA) PO SCH ×2 (10:05→12:49)
[2023-03-07] MEDS: THIAMINE HCL 100 MG TABLET PO SCH (10:05)
[2023-03-07] MEDS: CHLORDIAZEPOXIDE HCL 25 MG CAPSULE PO SCH (10:05)
[2023-03-07] MEDS: CLOTRIMAZOLE/BETAMETASONE DIPROPIONATE 15 GM TUBE TP SCH (10:06)
[2023-03-07] MEDS: ENOXAPARIN SODIUM 40 MG/0.4 ML DISP.SYRIN SQ SCH (10:06)
[2023-03-07] MEDS: SERTRALINE HCL 25 MG TABLET PO SCH (12:50)
[2023-03-07 12:53] LABS: ALBUMIN 2.6 g/dL (3.4-5.0); BILIRUBIN,DIRECT 0.1 mg/dL (0.0-0.2); BILIRUBIN,TOTAL 0.4 mg/dL (0.2-1.0); TOTAL PROTEIN, SERUM 6.9 g/dL (6.4-8.2)
[2023-03-07] MEDS ORDERED: LEVOFLOXACIN (250MG) 250 MG TABLET PO SCH (13:00)
[2023-03-07] MEDS ORDERED: LEVO500T90 PO (13:21)
[2023-03-07] MEDS ORDERED: FOLI0.8C PO (13:21)
[2023-03-07] MEDS ORDERED: THIA100T70 PO (13:21)
--- NOTE | 2023-03-07 16:20 | NUR ---
MS EMISSIONS REPAIR TECHNICIAN TO HOME NOTE (DAY SHIFT) Patient tolerated well the removal of the # 20 gauge PIV catheter fully intact from his right hand without any signs of complications of IV therapy. Patient demonstrated understanding of his home care discharge instructions using the teach back method in his own words. Patient departed the [address] [place] [address] walking steady using his front wheel walker and escorted by RN down elevator to [facility] at the hospital exit bound for patient's home at 16:15 hours.
== END 2023-03-07 16:00 | disposition home or self-care (01) | DRG 720 ==
LOC: ER 10:43 → MED 03-03 05:29 → TELE 03-03 06:05 → MED 03-03 11:57
PROVIDERS: ADMIT Nurse Practitioner Acute Care; ATTEND Nurse Practitioner Family
DX: A41.9 Sepsis, unspecified organism (principal); J15.9 Unspecified bacterial pneumonia; E44.0 Moderate protein-calorie malnutrition; F05 Delirium due to known physiological condition; E87.1 Hypo-osmolality and hyponatremia; E88.09 Other disorders of plasma-protein metabolism, not elsewhere classified; F33.2 Major depressive disorder, recurrent severe without psychotic features; E86.1 Hypovolemia; F10.139 Alcohol abuse with withdrawal, unspecified; J69.0 Pneumonitis due to inhalation of food and vomit; Y90.0 Blood alcohol level of less than 20 mg/100 ml; J01.90 Acute sinusitis, unspecified; F41.9 Anxiety disorder, unspecified; L71.9 Rosacea, unspecified; E80.6 Other disorders of bilirubin metabolism; R74.01 Elevation of levels of liver transaminase levels; R53.1 Weakness; Z68.1 Body mass index [BMI] 19.9 or less, adult; N39.0 Urinary tract infection, site not specified; B95.2 Enterococcus as the cause of diseases classified elsewhere; R78.5 Finding of other psychotropic drug in blood
CPT/HCPCS: 36415; 70450-TC; 71045-TC; 80048-TC; 80053-TC; 80076-TC; 80202-TC; 81001; 83605-TC; 83735-TC; 84100-TC; 85025-TC; 87040-TC; 87081-TC; 87086-TC; 93307-TC; 97112-TC; 97116-TC; 97530-TC; A4223; G0378; G0480; J0692; J1650; J2060; J2405; J3370; J3411; J7030; J7042; J7060